=== PATIENT | female | born 1950 | race Caucasian/White ===

== ENCOUNTER 2019-05-03 11:59 | Inpatient (IN) ==
[2019-05-03] MEDS ORDERED: 0.9 % SODIUM CHLORIDE 1,000 ML IV SCH (12:15)
--- NOTE | 2019-05-03 13:00 | Emergency Department Note ---
Recheck HPI - General Chief Complaint: Recheck/Abnormal Lab/Rx Stated Complaint: PCP requested patient come to be seen Time Seen by Provider: 05/03/19 12:10 Source: patient, other Mode of arrival: wheelchair Limitations: no limitations, physical limitation - History of Present Illness HPI Narrative: 69-year-old female presents she was sent over for renal failure. She is been seen her primary care provider and she has not felt well for the last few mo nths. Is somewhat poor historian and hard to follow but from what she is seen she has not felt well for couple months but is been worse over the last couple of weeks. Sounds like she was recently treated for a urinary tract infection and was has been on antibiotics for the last week or so and then she became much worse last week after being on the antibiotics. And right upper quadrant pain and has lost about 12 pounds in the last 2 weeks. The right upper quadrant pain is new for the last week but the generally feeling poor and 12 pound weight loss had been going on previously. No fever or chills. No nausea, vomiting, or diarrhea. She does not have an appetite. No dysuria or frequency. We are still awaiting an ultrasound report at this time. [facility] reports the lab results came back today with a high potassium and elevated BUN and creatinine. We will repeat those labs here now as they are not readily available. - Related Data Home Medications Medication Instructions Recorded Confirmed aspirin 325 mg tablet 325 mg PO QDAY 10/16/15 11/05/15 atorvastatin 40 mg tablet 40 mg PO QDAY 10/16/15 11/05/15 budesonide-formoterol HFA 160 1 inh INHALATION BID g 10/16/15 11/05/15 mcg-4.5 mcg/actuation aerosol inhaler carvedilol 12.5 mg tablet 12.5 mg PO BID 10/16/15 11/05/15 cholecalciferol (vitamin D3) 50,000 unit PO .COMPLEX 10/16/15 11/05/15 50,000 unit tablet cyanocobalamin (vit B-12) 1,000 See Dose Instructions IM QMONTH 10/16/15 11/05/15 mcg/mL injection solution ferrous sulfate 325 mg (65 mg mg PO 10/16/15 11/05/15 iron) tablet folic acid 1 mg tablet 1 mg PO QDAY 10/16/15 11/05/15 furosemide 20 mg tablet 20 mg PO QDAY 10/16/15 11/05/15 hydrocodone 10 mg-acetaminophen 1 tab PO Q4H PRN 10/16/15 11/05/15 325 mg tablet hydroxychloroquine 200 mg tablet 200 mg PO QDAY tab 10/16/15 11/05/15 levothyroxine 88 mcg tablet 125 mcg PO QDAY 10/16/15 11/05/15 methotrexate sodium 2.5 mg tablet See Dose Instructions PO QWEEK tab 10/16/15 11/05/15 nitroglycerin 0.4 mg sublingual 0.4 mg SUBLINGUAL Q5MIN PRN 10/16/15 11/05/15 tablet oxybutynin chloride ER 10 mg 10 mg PO QHS tab 10/16/15 11/05/15 tablet,extended release 24 hr polyethylene glycol 3350 PO 10/16/15 11/05/15 potassium chloride ER 10 mEq 10 meq PO QDAY PRN tab 10/16/15 11/05/15 tablet,extended release prochlorperazine maleate 10 mg 10 mg PO Q6H PRN 10/16/15 11/05/15 tablet ranitidine 150 mg tablet 150 mg PO BID tab 10/16/15 11/05/15 tiotropium bromide 18 mcg capsule 18 mcg INHALATION QDAY 10/16/15 11/05/15 with inhalation device One Daily For Women Tablet 11/07/15 Apixaban [Eliquis] 1 tab PO BID 05/03/19 05/03/19 Allergies Allergy/AdvReac Type Severity Reaction Status Date / Time tetracycline Allergy Mild Hives Verified 05/03/19 15:51 baclofen Allergy Unknown Unknown Verified 05/03/19 15:51 Review of Systems All systems ED: reviewed and negative except as stated. Past Medical History - Past Medical History [facility] Narrative: Medical History Gall stones (Acute) Kidney stones (Acute) History of mammogram (Acute) History of bone density study (Acute) Compression fracture (Acute) Herpes zoster (Acute) Vitamin B12 deficiency (Acute) Anemia (Acute) Gastritis (Acute) H/O: hysterectomy (Acute) Hyperlipemia (Acute) Heart attack (Acute) CAD (coronary artery disease) (Acute) Lupus (Acute) Hypertension (Acute) Medical History Gall stones (Acute) Kidney stones (Acute) History of mammogram (Acute) History of bone density study (Acute) Compression fracture (Acute) Herpes zoster (Acute) Vitamin B12 deficiency (Acute) Anemia (Acute) Gastritis (Acute) H/O: hysterectomy (Acute) Hyperlipemia (Acute) Heart attack (Acute) CAD (coronary artery disease) (Acute) Lupus (Acute) Hypertension (Acute) tetracycline Allergy (Unknown, Verified 05/03/19 12:04) Hives baclofen Allergy (Verified 05/03/19 12:04) 05/03/19 12:11 ED Peripheral IV NOW 05/03/19 12:15 0.9 % Sodium Chloride [Sodium Chloride 0.9%] 1,000 ml IV 150 mls/hr 05/03/19 12:42 CHEM 8 - POC 3 Profile Stat Complete Blood Count Stat Comprehensive Metabolic Panel Stat Thyroid Stimulating Hormone Stat Temp Pulse Resp BP Pulse Ox 97.1 F 66 18 116/66 99 05/03/19 12:00 05/03/19 12:00 05/03/19 12:00 05/03/19 12:00 05/03/19 12:00 Past Surgical History History of colonoscopy (Acute) Stented coronary artery (Acute) History of tonsillectomy and adenoidectomy (Acute) History of breast biopsy (Acute) - Social History smoking status: Never smoker Physical Exam Limitations: no limitations, physical limitation Course Course Narrative: @[address] Edward. He will consult. Would like us to give the patient 3 A of bicarb and a liter of normal saline at [address] a Lubin. @1500 I did speak with hospitalist Dr. mike regarding pt. He would like abd/pelv CT for cont RUQ abd pain, no abnormality on US. At 1700 hospitalist agrees to accept this patient and Dr. Edward with nephrology will consult Vital Signs Temperature 97.1 F 05/03/19 12:00 Pulse Rate 66 05/03/19 12:00 Respiratory Rate 18 05/03/19 12:00 Blood Pressure 116/66 05/03/19 12:00 Pulse Oximetry (%) 99 05/03/19 12:00 Temperature 97.1 F 05/03/19 12:00 Pulse Rate 57 L 05/03/19 17:01 Respiratory Rate 18 05/03/19 12:00 Blood Pressure 95/48 05/03/19 17:01 Pulse Oximetry (%) 97 05/03/19 17:01 Recheck/Abnormal Lab/Rx - Lab Data Lab results reviewed: Yes I reviewed the patient's lab results. Result diagrams: 05/03/19 12:42 05/03/19 12:42 Lab Results 05/03/19 05/03/19 05/03/19 Range/Units 12:42 12:42 13:08 WBC 4.1 L (4.5-11.0) K/mcL RBC 3.77 L (4.00-5.20) M/mcL Hgb 11.6 L (12.0-15.0) g/dL Hct 35.5 L (36.0-48.0) % POC Hct TNP 38.0 MCV 94.0 (80.0-100.0) fL MCH 30.7 (26.0-34.0) pg MCHC 32.6 (31.0-36.0) g/dL RDW 15.7 H (11.5-14.5) % Plt Count 128 L (140-440) K/mcL MPV 8.9 (7.4-10.4) fL Gran % 59.9 (38.0-78.0) % Lymph % (Auto) 32.0 (15.5-49.0) % [place]on % (Auto) 5.1 (1.0-12.0) % Eos % (Auto) 2.5 (0.0-7.0) % Baso % (Auto) 0.5 (0.0-2.0) % Gran # 2.5 (1.8-8.0) K/mcL Lymph # (Auto) 1.3 L (1.5-4.8) K/mcL [place]on # (Auto) 0.2 (0.1-0.9) K/mcL Eos # (Auto) 0.1 (0.0-0.7) K/mcL Baso # (Auto) 0 (0.0-0.3) K/mcL POC Sodium TNP 130 L Sodium 130 L (133-145) mmol/L POC Potassium TNP 7.8 H* Potassium 7.8 H* (3.3-5.1) mmol/L POC Chloride TNP 106 Chloride 100 (96-108) mmol/L Carbon Dioxide 15 L (22-30) mmol/L POC Total CO2 TNP 19 L Anion Gap 15.0 (8-16) POC BUN TNP 49 H BUN 49 H (8-23) mg/dl Creatinine 2.5 H (0.6-1.1) mg/dl POC Creatinine TNP 2.6 H GFR Calculation 19 Glucose 92 (70-105) mg/dL POC Glucose TNP 88 Calcium 10.5 H (8.6-10.4) mg/dl POC WB Ioniz Calcium TNP 1.41 H Total Bilirubin 0.3 (0.0-1.0) mg/dL AST 22 (0-37) U/l ALT 26 (0-40) U/l Alkaline Phosphatase 144 H (39-117) U/L Total Protein 7.3 (5.9-8.4) gm/dL Albumin 4.3 (3.2-5.2) gm/dL Globulin 3.0 (2.2-3.7) gm/dL Albumin/Globulin Ratio 1.4 (1.0-2.3) TSH 1.81 (0.27-5.01) uIU/ml - Radiology Data Radiology results reviewed: Yes I reviewed the patient's radiology results. Disposition Pt seen by [facility] only: Yes Clinical Impression: Hyperkalemia, Acute renal failure Disposition: Xfer As Inpt ([facility]) Condition: Fair Referrals: Denise Cid ARNP [Primary Care Provider] - Time of Disposition: 17:00
[2019-05-03 13:21] LABS: POC Blood Urea Nitrogen 49 mg/dl (8-23); POC CO2 19 mmol/L (22-30); POC Calcium, Ionized 1.41 mmol/L (1.16-1.32); POC Chloride 106 mmol/L (96-108); POC Creatinine 2.6 mg/dl (0.6-1.1); POC Glucose, Random 88 mg/dL (70-105); POC Potassium 7.8 mmol/L (3.3-5.1); POC Sodium 130 mmol/L (133-145)
[2019-05-03 13:29] LABS: Basophils # (Auto) 0 K/mcL (0.0-0.3); Basophils % (Auto) 0.5 % (0.0-2.0); Eosinophils # (Auto) 0.1 K/mcL (0.0-0.7); Eosinophils % (Auto) 2.5 % (0.0-7.0); Granulocytes % (Auto) 59.9 % (38.0-78.0); Hematocrit 35.5 % (36.0-48.0); Hemoglobin 11.6 g/dL (12.0-15.0); Lymphocytes # (Auto) 1.3 K/mcL (1.5-4.8); Mean Corpuscular HGB Conc 32.6 g/dL (31.0-36.0); Mean Platelet Volume 8.9 fL (7.4-10.4); Monocytes # (Auto) 0.2 K/mcL (0.1-0.9); Monocytes % (Auto) 5.1 % (1.0-12.0); Platelet Count 128 K/mcL (140-440); RBC 3.77 M/mcL (4.00-5.20); Red Cell Distribution Width 15.7 % (11.5-14.5); WBC 4.1 K/mcL (4.5-11.0)
[2019-05-03 14:26] LABS: ALT/SGPT 26 U/l (0-40); AST/SGOT 22 U/l (0-37); Albumin 4.3 gm/dL (3.2-5.2); Albumin/Globulin Ratio 1.4 (1.0-2.3); Alkaline Phosphatase 144 U/L (39-117); Bilirubin,Total 0.3 mg/dL (0.0-1.0); Blood Urea Nitrogen 49 mg/dl (8-23); Calcium 10.5 mg/dl (8.6-10.4); Carbon Dioxide 15 mmol/L (22-30); Chloride 100 mmol/L (96-108); Glomerular Filtration Rate 19; Glucose 92 mg/dL (70-105); Thyroid Stimulating Hormone 1.81 uIU/ml (0.27-5.01)
[2019-05-03] MEDS ORDERED: SODIUM BICARBONATE IV ONE (14:35)
[2019-05-03] MEDS ORDERED: SODIUM CHLORIDE 0.9% IV ONE (14:35)
[2019-05-03] MEDS ORDERED: INSULIN REGULAR, HUMAN 1 UNIT/0.01 ML UNIT IV ONE (14:37)
[2019-05-03] MEDS ORDERED: DEXTROSE 50% 50 ML SYRINGE IV ONE (14:38)
--- NOTE | 2019-05-03 15:36 | Internal Med History&Physical ---
Medical - H&P: [facility] Patient information: Note initiated : 05/03/19 at 3:32 pm Service Date, if different from initiated Date: [] Patient: Margarita Tovar a 69 y/o F admitted on for PCP Requested Patient Come To Be Seen. Chief Complaint: [] History of present illness: Ms. Tovar is a 69 year old F Who has felt very tired and sleepy for the past week. About 5 days ago she developed a right upper abdominal pain which does she describes as a bruising type of pain not sharp or achy or dull. Nonradiating. She also recently diagnosed with urinary tract infection and was prescribed Bactrim I believe, about a week ago. She was undergoing a abdominal ultrasound today ordered by her primary to work- up abdominal pain when she was called by her primary and and told to go to the ER because of her laboratory work which was done outpatient was abnormal which was her elevated BUN/creatinine and potassium. Patient does not feel any other complaints other than the abdominal pain and the generalized malaise. Denies flank pain, denies urinary symptoms. Has a mild dry cough. He is found to have BUN 49 creatinine of 2.5 and typically she has essentially normal creatinine. Her potassium was 7.8. Dr. Stephenson was contacted ordered to bicarb as well as insulin glucose. Verbal report from ultrasound was unremarkable. Patient is undergoing CT abdomen. Review of Systems: Pertinent positives as above. Denies headache/fever/chills/nausea/vomiting/chest pain/cough/dyspnea/diarrhea. Remaining 10 point review of system reviewed negative Medical - H&P: PM Medical history: Medical History Gall stones (Acute) Kidney stones (Acute) History of mammogram (Acute) History of bone density study (Acute) Compression fracture (Acute) Herpes zoster (Acute) Vitamin B12 deficiency (Acute) Anemia (Acute) Gastritis (Acute) H/O: hysterectomy (Acute) Hyperlipemia (Acute) Heart attack (Acute) CAD (coronary artery disease) (Acute) Lupus (Acute) Hypertension (Acute) Past Surgical History History of colonoscopy (Acute) Stented coronary artery (Acute) History of tonsillectomy and adenoidectomy (Acute) History of breast biopsy (Acute) Family History Mother Hypertension Father Hypertension Social History Quit smoking 10 years ago denies alcohol use ablates with a cane lives with brother Medical - H&P: Meds Home Medications Medication Instructions Recorded Confirmed Type atorvastatin 40 mg tablet 40 mg PO QHS 10/16/15 05/03/19 History budesonide-formoterol HFA 160 1 inh INHALATION BID g 10/16/15 05/03/19 History mcg-4.5 mcg/actuation aerosol inhaler carvedilol 12.5 mg tablet 12.5 mg PO BID 10/16/15 05/03/19 History cholecalciferol (vitamin D3) 50,000 unit PO DAILY 10/16/15 05/03/19 History 50,000 unit tablet cyanocobalamin (vit B-12) 1,000 See Dose Instructions IM QMONTH 10/16/15 05/03/19 History mcg/mL injection solution ferrous sulfate 325 mg (65 mg 325 mg PO QNOON 10/16/15 05/03/19 History iron) tablet folic acid 1 mg tablet 1 mg PO QDAY 10/16/15 05/03/19 History furosemide 20 mg tablet 20 mg PO QDAY PRN 10/16/15 05/03/19 History hydrocodone 10 mg-acetaminophen 1 tab PO Q4H PRN 10/16/15 05/03/19 History 325 mg tablet hydroxychloroquine 200 mg tablet 200 mg PO QDAY tab 10/16/15 05/03/19 History levothyroxine 88 mcg tablet 125 mcg PO QDAY 10/16/15 05/03/19 History methotrexate sodium 2.5 mg tablet See Dose Instructions PO VAZQUEZ tab 10/16/15 05/03/19 History nitroglycerin 0.4 mg sublingual 0.4 mg SUBLINGUAL Q5MIN PRN 10/16/15 05/03/19 History tablet oxybutynin chloride ER 10 mg 10 mg PO QHS tab 10/16/15 05/03/19 History tablet,extended release 24 hr polyethylene glycol 3350 17 gm PO DAILY PRN 10/16/15 05/03/19 History potassium chloride ER 10 mEq 10 meq PO TID tab 10/16/15 05/03/19 History tablet,extended release prochlorperazine maleate 10 mg 10 mg PO Q6H PRN 10/16/15 05/03/19 History tablet ranitidine 150 mg tablet 150 mg PO BID tab 10/16/15 05/03/19 History tiotropium bromide 18 mcg capsule 18 mcg INHALATION Q48 10/16/15 05/03/19 History with inhalation device Apixaban [Eliquis] 1 tab PO BID 05/03/19 05/03/19 History Aspirin [Sabine Chewable Aspirin] 81 mg PO DAILY 05/03/19 05/03/19 History Multivit-Min/Iron/Folic/Lutein 1 each PO DAILY 05/03/19 05/03/19 History [Multivitamin Women 50 Plus Tab] Allergies Allergy/AdvReac Type Severity Reaction Status Date / Time baclofen Allergy Severe Other Verified 05/03/19 18:40 tetracycline Allergy Mild Hives Verified 05/03/19 15:51 Medical - H&P: Exam - Constitutional Vitals: Temp Pulse Resp BP Pulse Ox 97.1 F 66 18 116/66 99 05/03/19 12:00 05/03/19 12:00 05/03/19 12:00 05/03/19 12:00 05/03/19 12:00 Exam: General: Alert, Awake, No acute Distress, frail-appearing Eyes/N/T: EOMI, PEERL, DMM Head/Neck: neck supple, normocephalic atraumatic CV: RRR, 1/6 SM, normal s1/s2 Pulm: Clear b/l, no wheezing/rhonchi/rales Abd: soft, mild tenderness to palpation right upper quadrant, +BS x4 Ext: no clubbing/cyanosis/edema Neuro: Alert, no focal deficits, moves all extremities, CN 2-12 grossly intact, symmetrical strength b/l upper/lower, sensations intact b/l upper/lower Skin: warm/dry Medical - H&P: Reslt - Labs CBC & Chem 7: 05/03/19 12:42 05/03/19 17:18 Labs: Short CBC 05/03/19 Range/Units 12:42 WBC 4.1 L (4.5-11.0) K/mcL Hgb 11.6 L (12.0-15.0) g/dL Hct 35.5 L (36.0-48.0) % Plt Count 128 L (140-440) K/mcL BMP 05/03/19 12:42 Sodium 130 L Potassium 7.8 H* Chloride 100 Carbon Dioxide 15 L BUN 49 H Creatinine 2.5 H Glucose 92 Calcium 10.5 H Liver Function 05/03/19 Range/Units 12:42 Total Bilirubin 0.3 (0.0-1.0) mg/dL AST 22 (0-37) U/l ALT 26 (0-40) U/l Alkaline Phosphatase 144 H (39-117) U/L Albumin 4.3 (3.2-5.2) gm/dL - Impressions Verbal report on ultrasound unremarkable. 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 Estevez -Anemia, thrombocytopenia, leukopenia *AFib: On beta-adelfo and Eliquis *CAD's w/stent: *h/o TIA: *COPD (no home oxygen): *Hypothyroidism: *RA: On hydroxychloroquine and methotrexate *GERD: *Chronic low back pain: * P: -insulin/glucose, bicarb gtt -f/u K -Nephro following -mcguire placed -ACTH Stim test in AM -Dexamethasone if need prior to testing. -cont home ASA/Statin -hold for low-normal BB and concern for adrenal insuff, toprol may be more ideal than coreg for decreased effect on BP. -hold diuretics -pt/ot -ppx: eliquis/home H2 full code
[2019-05-03] MEDS ORDERED: HYDROcodone/APAP 5/325MG TABLET PO PRN ×2 (15:45→17:51)
[2019-05-03] MEDS ORDERED: ACETAMINOPHEN 325 MG TABLET PO PRN ×2 (15:45→17:51)
[2019-05-03] MEDS ORDERED: ALBUTEROL SULFATE 2.5 MG/3 ML NEBULIZER NEB PRN ×2 (15:45→17:51)
--- NOTE | 2019-05-03 16:01 | Cat Scan Report ---
CLINICAL INFORMATION: Right upper quadrant pain COMPARISON: None. TECHNIQUE: IV contrast was withheld due to elevated BUN/creatinine 0.625 mm helical slices were obtained from the mid heart through the subtrochanteric regions. Following reconstruction, 2.5 mm sagittal, coronal and axial reformatted images were processed and reviewed at bone and soft tissue windows.The exam was performed using radiation dose optimization techniques including, but not limited to, automated exposure control, adjustment of the mA and/or kV according to patient size and use of iterative reconstruction technique. FINDINGS: Lung bases show moderate scattered scarring and atelectasis with chronic bronchitis. No effusion. The heart is moderately enlarged with extremely heavy calcific plaque in the coronary arteries. Central pulmonary arteries appear mildly enlarged suggesting pulmonary hypertension. Pulmonary arteries are incompletely imaged. Small hiatal hernia noted Images through the abdomen show the noncontrasted liver to be unremarkable. The gallbladder is surgically absent. The common bile duct is moderately dilated with 12 mm with abrupt tapering near the ampullary region. 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 The noncontrasted pancreas, otherwise the normal. Both kidneys show mild atrophy: the right is 9 cm in length and the left is also 9 cm in length. A few small nonobstructing stones in calyces of both kidneys. There is a 7 mm calcification in the posterior left kidney which may represent a nonobstructing stone or calcified cyst. The aorta is normal in diameter demonstrates extremely heavy calcific lack. Pelvic images show the urinary bladder to be normal. Hysterectomy and oophorectomy changes noted. The stomach, small large bowel grossly normal. Bone windows show mild T10 T11 T12 compression fractures with minimal L1 compression fracture treated with kyphoplasty mild L2 compression fracture. IMPRESSION: 1. 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 Please correlate with obstructive LFT pattern. 2. Mild bilateral renal atrophy. Scattered small nonobstructing stones in the calyces of both kidneys. 3. Small hiatal hernia 4. Mild cardiomegaly with heavy calcific and soft plaque in the coronary arteries 5. Mild compression fractures lower thoracic and lumbar spine due to osteoporosis Interpreted and Authenticated by: Rashi Ruffin 05/03/19
[2019-05-03] MEDS ORDERED: SODIUM BICARBONATE VIAL 150 MEQ in DEXTROSE 5% IN WATER 850 ML IV SCH (17:51)
[2019-05-03] MEDS ORDERED: SODIUM BICARBONATE VIAL 150 MEQ in DEXTROSE 5% IN WATER 850 ML IV STA (18:07)
[2019-05-03 18:32] LABS: Blood Urea Nitrogen 42 mg/dl (8-23); Calcium 9.7 mg/dl (8.6-10.4); Carbon Dioxide 17 mmol/L (22-30); Chloride 108 mmol/L (96-108); Glomerular Filtration Rate 28; Glucose 37 mg/dL (70-105)
[2019-05-03] MEDS ORDERED: APIXABAN 2.5 MG TABLET PO SCH (21:00)
[2019-05-03] MEDS ORDERED: DOCUSATE SODIUM 100 MG CAPSULE PO SCH (21:00)
[2019-05-03] MEDS ORDERED: FAMOTIDINE 20 MG TABLET PO SCH ×2 (21:00)
[2019-05-03] MEDS ORDERED: POLYETHYLENE GLYCOL 3350 17 GM PACKET PO PRN (21:31)
[2019-05-03] MEDS ORDERED: 0.9 % SODIUM CHLORIDE 10 ML SYRINGE IV SCH (22:00)
[2019-05-03 22:05] LABS: Appearance,Urine CLEAR; Bacteria,Urine 0 /hpf (0); Bilirubin,Urine NEG (NEG); Color,Urine YELLOW; Culture Indicated,Urine NO; Glucose,Urine (UA) NEGATIVE (NEG); Ketones,Urine NEG (NEG); Leukocyte Esterase,Urine NEG /uL (NEG); Mucus,Urine FEW /hpf (0); Nitrate,Urine NEG (NEG); Protein,Urine NEG (NEG); Specific Gravity,Urine 1.013 (1.000-1.035); Urine Amorphous Crystals FEW /hpf (0); Urine Blood >=1.0 mg/dL (<0.03); Urine Hyaline Cast 4 /lpf (0-2); Urine RBC 6 /hpf (0-1); Urine Squamous Epithelial Cell 0 /hpf (0-4); Urine WBC 2 /hpf (0-4); Urobilinogen,Urine NEG (NEG)
[2019-05-03] MEDS ORDERED: NITROGLYCERIN 0.4 MG TAB.SUBL SL PRN (22:07)
[2019-05-03] MEDS ORDERED: PROCHLORPERAZINE 10 MG TABLET PO PRN (22:15)
[2019-05-03] MEDS: APIXABAN 2.5 MG TABLET PO SCH (22:45)
[2019-05-03] MEDS: DOCUSATE SODIUM 100 MG CAPSULE PO SCH (22:45)
[2019-05-03] MEDS: HYDROCORTISONE SOD SUCC 100 MG VIAL IV SCH (22:47)
[2019-05-03] MEDS: 0.9 % SODIUM CHLORIDE 10 ML SYRINGE IV SCH (22:51)
[2019-05-04] MEDS: HYDROcodone/APAP 10/325MG TABLET PO PRN ×2 (05:59→15:54)
[2019-05-04 06:02] LABS: Albumin 3.1 gm/dL (3.2-5.2); Calcium 8.8 mg/dl (8.6-10.4); Phosphorous 3.9 mg/dL (2.7-4.5)
[2019-05-04] MEDS: 0.9 % SODIUM CHLORIDE 10 ML SYRINGE IV SCH ×4 (06:06→20:52)
[2019-05-04] MEDS: HYDROCORTISONE SOD SUCC 100 MG VIAL IV SCH ×2 (06:06→15:16)
[2019-05-04] MEDS ORDERED: COSYNTROPIN 0.25 MG VIAL IV ONE (07:00)
[2019-05-04] MEDS ORDERED: LABETALOL 5 MG/ML ML IV PRN (07:19)
--- NOTE | 2019-05-04 07:20 | Internal Med Progress Note ---
Medical - PN: Subj Patient information: Note initiated : 05/04/19 at 7:17 am Service Date, if different from initiated Date: [] Patient: Margarita Tovar a 69 y/o F admitted on 05/03/19 for PCP Requested Patient Come To Be Seen. Chief Complaint: [] Interval history: Ms. Tovar is a 69 year old F Who has felt very tired and sleepy for the past week. About 5 days ago she developed a right upper abdominal pain which does she describes as a bruising type of pain not sharp or achy or dull. Nonradiating. She also recently diagnosed with urinary tract infection and was prescribed Bactrim I believe, about a week ago. She was undergoing a abdominal ultrasound today ordered by her primary to work- up abdominal pain when she was called by her primary and and told to go to the ER because of her laboratory work which was done outpatient was abnormal which was her elevated BUN/creatinine and potassium. Patient does not feel any other complaints other than the abdominal pain and the generalized malaise. Denies flank pain, denies urinary symptoms. Has a mild dry cough. He is found to have BUN 49 creatinine of 2.5 and typically she has essentially normal creatinine. Her potassium was 7.8. Dr. Stephenson was contacted ordered to bicarb as well as insulin glucose. Verbal report from ultrasound was unremarkable. Patient is undergoing CT abdomen. 05/04 Feeling good. Slept well. No new complaints. Awaiting endocrine labs and following up renal function and potassium Review of Systems: denies headache/fever/chills/nausea/vomiting/chest or abdominal pain/cough/dyspnea/diarrhea. Otherwise see above. - Constitutional Vitals: Vital Signs Temp Pulse Resp BP Pulse Ox 97.5 F 63 12 140/68 100 05/04/19 03:26 05/04/19 03:26 05/04/19 03:26 05/04/19 03:26 05/04/19 03:26 Period Temp Pulse Resp BP Sys/Gutierrez Pulse Ox Last 24 Hr 96.9 F-97.5 F 44-69 12-18 95-140/48-68 95-100 Intake and Output 05/03/19 05/04/19 05/04/19 21:59 05:59 13:59 Intake Total 1201 225 Balance 1201 225 Weight 48.081 kg Intake & Output: Intake & Output 05/03/19 05/04/19 05/04/19 21:59 05:59 13:59 Intake Total 1201 225 Balance 1201 225 Weight 48.081 kg Intake: IV 1201 Sodium Chloride 0.9% 1,000 ml @ 1000 150 mls/hr IV .Q6H40M [facility] Rx#: [id number] Sodium Bicarbonate Vial 150 Meq 201 In Sodium Chloride 0.9% 850 ml @ 0.18 MEQ/KG/HR 57.7 mls/hr IV ONCE ONE Rx#:[id number] Oral 225 Other: Meal Dinner Jello Percent of Meal Consumed 50% 100% Feeding Ability Independent Independent Urine Appearance Uretheral (Mcguire) Clear Urine Color Uretheral (Mcguire) Pale Exam: General: Alert, Awake, No acute Distress, frail-appearing Eyes/N/T: EOMI, Head/Neck: neck supple, CV: RRR, 1/6 SM, normal s1/s2 Pulm: Clear b/l, no wheezing/rhonchi/rales Abd: soft, nontender, +BS x4 Ext: no clubbing/cyanosis/edema Neuro: Alert, no focal deficits, moves all extremities, Skin: warm/dry - Head Additional comments: General: Alert, Awake, No acute Distress, frail-appearing Eyes/N/T: EOMI, Head/Neck: neck supple, CV: RRR, 1/6 SM, Pulm: Clear b/l, no wheezing/rhonchi/rales Abd: soft, mild tenderness to palpation right upper quadrant, +BS x4 Ext: no clubbing/cyanosis/edema Neuro: Alert, no focal deficits, moves all extremities, Skin: warm/dry Medical - PN: Obj Da - Labs CBC & Chem 7: 05/04/19 06:59 05/04/19 06:59 Labs: Abnormal Lab Results 05/03/19 05/03/19 05/03/19 22:06 21:24 17:18 WBC RBC Hgb Hct RDW Plt Count Lymph # (Auto) POC Sodium Sodium POC Potassium Potassium 6.0 H* 5.2 H Carbon Dioxide 21 L 17 L POC Total CO2 POC BUN BUN 41 H 42 H Creatinine 1.5 H 1.8 H POC Creatinine Glucose 160 H 37 L* Calcium POC WB Ioniz Calcium Alkaline Phosphatase Albumin 3.1 L Urine Occult Blood >=1.0 A Urine RBC 6 H Amorphous Crystals Few A Hyaline Casts 4 H 05/03/19 05/03/19 05/03/19 13:08 12:42 12:42 WBC 4.1 L RBC 3.77 L Hgb 11.6 L Hct 35.5 L RDW 15.7 H Plt Count 128 L Lymph # (Auto) 1.3 L POC Sodium 130 L Sodium 130 L POC Potassium 7.8 H* Potassium 7.8 H* Carbon Dioxide 15 L POC Total CO2 19 L POC BUN 49 H BUN 49 H Creatinine 2.5 H POC Creatinine 2.6 H Glucose Calcium 10.5 H POC WB Ioniz Calcium 1.41 H Alkaline Phosphatase 144 H Albumin Urine Occult Blood Urine RBC Amorphous Crystals Hyaline Casts Meds: Medications Acetaminophen (Tylenol) 650 mg PO Q6HP PRN PRN Reason: PAIN/FEVER > 101 Hydrocodone Bitart/Acetaminophen ([place] 10/325mg) 1 tab PO Q4HP PRN PRN Reason: Pain Last Admin: 05/04/19 05:59 Dose: 1 tab Documented by: Albuterol Sulfate (Ventolin) 2.5 mg NEB Q2HP PRN PRN Reason: Shortness Of Breath Apixaban (Eliquis) 2.5 mg PO BID [facility] Last Admin: 05/03/19 22:45 Dose: 2.5 mg Documented by: Aspirin (Aspirin) 81 mg PO DAILY [facility] Atorvastatin Calcium (Lipitor) 40 mg PO QHS [facility] Docusate Sodium (Colace) 100 mg PO BID [facility] Last Admin: 05/03/19 22:45 Dose: 100 mg Documented by: Famotidine (Pepcid) 20 mg PO BID [facility] Folic Acid (Folic Acid) 1 mg PO QDAY [facility] Hydrocortisone Sodium Succinate (Solu-Cortef) 100 mg IV Q8 [facility] Stop: 05/05/19 14:01 Last Admin: 05/04/19 06:06 Dose: 100 mg Documented by: Hydroxychloroquine Sulfate (Plaquenil) 200 mg PO QDAY [facility] Levothyroxine Sodium (Synthroid) 125 mcg PO QAMAC [facility] Nitroglycerin (Nitrostat) 0.4 mg SL Q5M PRN PRN Reason: Chest Pain Oxybutynin Chloride (Ditropan Xl) 10 mg PO QHS [facility] Symbicort 160-4.5 (Inh) 1 dose INH BID [facility] Polyethylene Glycol (Miralax) 17 gm PO DAILYP PRN PRN Reason: Constipation Prochlorperazine (Compazine) 10 mg PO Q6HP PRN PRN Reason: Nausea Sodium Chloride (Saline Flush) 10 ml IV Q8 [facility] Last Admin: 05/04/19 06:06 Dose: 10 ml Documented by: Tiotropium [place] (Spiriva) 18 mcg INH Q48 [facility] Medical - PN: A/P - Time Spent With Patient Total time spent is greater than 50% in coordination of care (as documented) at patient's floor/unit and/or counseling patient: - Narrative A/P Narrative: A: *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 Estevez -Anemia, thrombocytopenia, leukopenia *AFib: On BB/Eliquis *CAD's w/stent: *h/o TIA: *COPD (no home oxygen): *Hypothyroidism: *?SLE: On hydroxychloroquine and methotrexate *GERD: *Chronic low back pain: * P: -insulin/glucose, bicarb gtt -f/u K -Nephro following -mcguire placed -ACTH Stim test -cont home ASA/Statin -Decreased coreg for low-normal BP and concern for adrenal insuff, toprol may be more ideal than coreg for decreased effect on BP. -hold diuretics -pt/ot -ppx: eliquis/home H2 full code Medical - PN: Qual - VTE Deep Vein Thrombosis/Pulmonary Embolism Present on Admission: No
[2019-05-04] MEDS: CARVEDILOL 3.125 MG TABLET PO SCH ×2 (08:28→17:51)
[2019-05-04] MEDS: FOLIC ACID 1 MG TABLET PO SCH (08:28)
[2019-05-04] MEDS: DOCUSATE SODIUM 100 MG CAPSULE PO SCH ×2 (08:28→20:51)
[2019-05-04] MEDS: ASPIRIN 81 MG TAB.CHEW PO SCH (08:28)
[2019-05-04] MEDS: APIXABAN 2.5 MG TABLET PO SCH ×2 (08:29→20:51)
[2019-05-04] MEDS: HYDROXYCHLOROQUINE 200 MG TABLET PO SCH (08:29)
[2019-05-04] MEDS: SYMBICORT INH SCH ×2 (08:29→20:52)
[2019-05-04] MEDS: FAMOTIDINE 20 MG TABLET PO SCH ×2 (08:29→20:51)
[2019-05-04 08:33] LABS: ALT/SGPT 20 U/l (0-40); AST/SGOT 20 U/l (0-37); Albumin 3.6 gm/dL (3.2-5.2); Albumin/Globulin Ratio 1.4 (1.0-2.3); Alkaline Phosphatase 121 U/L (39-117); Bilirubin,Direct < 0.2 mg/dL (0.0-0.3); Bilirubin,Total 0.4 mg/dL (0.0-1.0); Blood Urea Nitrogen 31 mg/dl (8-23); Calcium 9.3 mg/dl (8.6-10.4); Carbon Dioxide 25 mmol/L (22-30); Chloride 97 mmol/L (96-108); Globulin 2.6 gm/dL (2.2-3.7); Glomerular Filtration Rate 46; Glucose 155 mg/dL (70-105); Lactate Dehydrogenase 194 U/L (94-250); Phosphorous 2.5 mg/dL (2.7-4.5); Triglycerides 55 mg/dl (<150); Uric Acid 7.4 mg/dL (2.5-8.0)
[2019-05-04 08:43] LABS: Basophils # (Auto) 0 K/mcL (0.0-0.3); Basophils % (Auto) 0.3 % (0.0-2.0); Eosinophils # (Auto) 0 K/mcL (0.0-0.7); Eosinophils % (Auto) 0.2 % (0.0-7.0); Hematocrit 31.4 % (36.0-48.0); Hemoglobin 10.4 g/dL (12.0-15.0); Lymphocytes # (Auto) 0.5 K/mcL (1.5-4.8); Lymphocytes % (Auto) 15.4 % (15.5-49.0); Monocytes # (Auto) 0 K/mcL (0.1-0.9); Monocytes % (Auto) 1.1 % (1.0-12.0); Platelet Count 106 K/mcL (140-440); RBC 3.34 M/mcL (4.00-5.20); Red Cell Distribution Width 15.4 % (11.5-14.5); WBC 3.3 K/mcL (4.5-11.0)
[2019-05-04] MEDS ORDERED: RANITIDINE 150 MG PO SCH (09:00)
--- NOTE | 2019-05-04 09:07 | Nephrology Progress Note ---
Subjective Patient information: Note initiated : 05/04/19 at 9:04 am Service Date, if different from initiated Date: [] Patient: Margarita Tovar 69 y/o F admitted on 05/03/19 for PCP Requested Patient Come To Be Seen. Chief Complaint: [] Principal diagnosis: Hyperkalemia Interval history: Feels better after IVF. Wants to go home Pertinent ROS: Weakness bersists, hypotension and abd pain have abated Additional PMFSH (Level 3 Only): Need labs from primary hog worker Objective - Vital Signs Vital signs: Vital Signs Temp Pulse Pulse Resp BP BP Pulse Ox 05/04/19 03:26 97.5 F 63 12 140/68 100 05/03/19 23:43 97.4 F 44 L 12 114/55 99 05/03/19 19:39 96.9 F L 56 L 12 106/60 100 05/03/19 17:43 97.1 F 57 L 18 95/48 97 05/03/19 17:40 97.0 F 69 18 98/49 97 05/03/19 17:01 57 L 95/48 97 05/03/19 16:41 65 113/55 97 05/03/19 16:21 66 105/57 97 05/03/19 16:01 67 111/55 95 05/03/19 15:59 64 109/53 96 05/03/19 12:00 97.1 F 66 18 116/66 99 Intake and Output 05/03/19 05/04/19 05/04/19 21:59 05:59 13:59 Intake Total 1201 225 Balance 1201 225 Intake: IV 1201 Sodium Chloride 0.9% 1,000 ml @ 1000 150 mls/hr IV .Q6H40M [facility] Rx#: [id number] Sodium Bicarbonate Vial 150 Meq 201 In Sodium Chloride 0.9% 850 ml @ 0.18 MEQ/KG/HR 57.7 mls/hr IV ONCE ONE Rx#:[id number] Oral 225 Other: Meal Dinner Jello Percent of Meal Consumed 50% 100% Feeding Ability Independent Independent Urine Appearance Uretheral (Lubin) Clear Urine Color Uretheral (Lubin) Pale Weight 106 lb Intake & Output: Intake & Output 05/03/19 05/04/19 05/04/19 21:59 05:59 13:59 Intake Total 1201 225 Balance 1201 225 Weight 106 lb Intake: IV 1201 Sodium Chloride 0.9% 1,000 ml @ 1000 150 mls/hr IV .Q6H40M [facility] Rx#: [id number] Sodium Bicarbonate Vial 150 Meq 201 In Sodium Chloride 0.9% 850 ml @ 0.18 MEQ/KG/HR 57.7 mls/hr IV ONCE ONE Rx#:[id number] Oral 225 Other: Meal Dinner Jello Percent of Meal Consumed 50% 100% Feeding Ability Independent Independent Urine Appearance Uretheral (Lubin) Clear Urine Color Uretheral (Lubin) Pale - Lab 05/04/19 06:59 05/04/19 06:59 Most recent lab results Calcium 9.3 mg/dl (8.6-10.4) 05/04/19 06:59 Phosphorus 2.5 mg/dL (2.7-4.5) L 05/04/19 06:59 Magnesium 1.6 mg/dL (1.6-2.5) 05/04/19 06:59 Assessment and Plan (1) Hyperkalemia Resolved with bicarb, insulin, improved GFR and mineralocorticoid replacement Argues for ARF and adrenal [id number] Status: Acute Priority: High (2) Acute renal failure Improved O/N with IVF and hydrocortisone and improved BP Again, evidence of adrenal insuficiency Status: Acute Priority: High Qualifiers: Acute renal failure type: unspecified Qualified Code(s): N17.9 - Acute kidney failure, unspecified (3) Lupus Seems quiescent as the renal disease is improved and their is no alteration in mental status (her presenting Sx in the past) or significant proteinuria after hydration so I doubt lupus nephritis. F/U complement levels F/U with her primary Rheunatologist in [place] Status: Chronic Priority: Medium Qualifiers: Systemic lupus erythematosus type: other Systemic lupus erythematosus organ involvement: glomerular disease Qualified Code(s): M32.14 - Glomerular disease in systemic lupus erythematosus (4) Adrenal insufficiency due to steroid withdrawal The bad news => I screwed up the cortrosy stim test by forgetting to cancel the first dose of hydrocortisone The good news: The ACTH level may still be high 6 hrs after 1st dose of hydrocortisone More good news: Her symptoms which lead me to suspect adrenal insufficiency have all improved after the 1st dose of stress dose hydrocortisone and her PM cortisol level is innapropriatly low for some one with a BP <100 and Glucose as low as 35. Her BP responded dramatically in 3 hours after the HC which is pretty good physiologic evidence of adrenal insufficiency, as in sorrection of electrolytes, glucose levels remaining higher, increased strength and appetite. In the patients own words, she feels great and wants to go home. I have converted her to 2X the usual dose of hydrocortisone po BID with diurnal variation and anticipate discharge tomorrow. Status: Acute
[2019-05-04] MEDS: LEVOTHYROXINE 88 MCG TABLET PO SCH (10:46)
[2019-05-04] MEDS: HYDROCORTISONE 10 MG TABLET PO SCH (19:24)
[2019-05-04] MEDS: OXYBUTYNIN CHLORIDE 5 MG TAB.XL.24H PO SCH (20:51)
[2019-05-04] MEDS: ATORVASTATIN 20 MG TABLET PO SCH (20:51)
[2019-05-05] MEDS: HYDROcodone/APAP 10/325MG TABLET PO PRN ×3 (00:56→15:23)
[2019-05-05 05:08] LABS: Basophils # (Auto) 0 K/mcL (0.0-0.3); Basophils % (Auto) 0.2 % (0.0-2.0); Eosinophils # (Auto) 0 K/mcL (0.0-0.7); Eosinophils % (Auto) 0.1 % (0.0-7.0); Granulocytes % (Auto) 84.9 % (38.0-78.0); Hematocrit 28.5 % (36.0-48.0); Hemoglobin 9.4 g/dL (12.0-15.0); Lymphocytes # (Auto) 0.7 K/mcL (1.5-4.8); Mean Cell Volume 94.3 fL (80.0-100.0); Mean Corpuscular HGB Conc 32.9 g/dL (31.0-36.0); Mean Platelet Volume 8.9 fL (7.4-10.4); Monocytes # (Auto) 0.1 K/mcL (0.1-0.9); Monocytes % (Auto) 1.8 % (1.0-12.0); Platelet Count 99 K/mcL (140-440); RBC 3.02 M/mcL (4.00-5.20); Red Cell Distribution Width 15.6 % (11.5-14.5)
[2019-05-05] MEDS: 0.9 % SODIUM CHLORIDE 10 ML SYRINGE IV SCH ×3 (05:30→20:28)
[2019-05-05 06:20] LABS: ALT/SGPT 19 U/l (0-40); AST/SGOT 20 U/l (0-37); Albumin 3.3 gm/dL (3.2-5.2); Albumin/Globulin Ratio 1.3 (1.0-2.3); Alkaline Phosphatase 105 U/L (39-117); Bilirubin,Direct < 0.2 mg/dL (0.0-0.3); Bilirubin,Total 0.4 mg/dL (0.0-1.0); Blood Urea Nitrogen 25 mg/dl (8-23); Carbon Dioxide 23 mmol/L (22-30); Chloride 97 mmol/L (96-108); Globulin 2.5 gm/dL (2.2-3.7); Glomerular Filtration Rate 76; Glucose 119 mg/dL (70-105); Lactate Dehydrogenase 196 U/L (94-250); Phosphorous 2.7 mg/dL (2.7-4.5); Triglycerides 68 mg/dl (<150); Uric Acid 6.6 mg/dL (2.5-8.0)
[2019-05-05] MEDS: LEVOTHYROXINE 88 MCG TABLET PO SCH (06:44)
[2019-05-05] MEDS ORDERED: TIOTROPIUM BROMIDE 18 MCG INHALANT INH SCH (09:00)
--- NOTE | 2019-05-05 09:40 | Internal Med Progress Note ---
Medical - PN: Subj Patient information: Note initiated : 05/05/19 at 9:38 am Service Date, if different from initiated Date: [] Patient: Margarita Tovar a 69 y/o F admitted on 05/03/19 for PCP Requested Patient Come To Be Seen. Chief Complaint: [] Interval history: Ms. Tovar is a 69 year old F Who has felt very tired and sleepy for the past week. About 5 days ago she developed a right upper abdominal pain which does she describes as a bruising type of pain not sharp or achy or dull. Nonradiating. She also recently diagnosed with urinary tract infection and was prescribed Bactrim I believe, about a week ago. She was undergoing a abdominal ultrasound today ordered by her primary to work- up abdominal pain when she was called by her primary and and told to go to the ER because of her laboratory work which was done outpatient was abnormal which was her elevated BUN/creatinine and potassium. Patient does not feel any other complaints other than the abdominal pain and the generalized malaise. Denies flank pain, denies urinary symptoms. Has a mild dry cough. He is found to have BUN 49 creatinine of 2.5 and typically she has essentially normal creatinine. Her potassium was 7.8. Dr. Stephenson was contacted ordered to bicarb as well as insulin glucose. Verbal report from ultrasound was unremarkable. Patient is undergoing CT abdomen. 05/04 Feeling good. Slept well. No new complaints. Awaiting endocrine labs and following up renal function and potassium 05/05-patient doing better. No overnight events. No concerns per staff. Renal function normalized with creatinine at baseline. Potassium down to 4.9. Intermittent episodes of bradycardia with heart rate around 30 to 50s. But ligh theadedness dizziness much improved. Patient follows up at [facility] cardiology and will need a follow-up appointment on discharge for evaluation of intermittent bradycardia. Anticipate discharge in 48 hours if clinically continues to improve. - Constitutional Vitals: Vital Signs Temp Pulse Resp BP Pulse Ox 98.5 F 52 L 16 140/60 98 05/05/19 06:35 05/05/19 06:50 05/05/19 06:50 05/05/19 06:35 05/05/19 06:50 Period Temp Pulse Resp BP Sys/Gutierrez Pulse Ox Last 24 Hr 98.1 F-98.7 F 52-70 14-18 135-156/60-73 97-100 Intake and Output 05/04/19 05/05/19 05/05/19 21:59 05:59 13:59 Intake Total 540 480 Output Total 1400 950 Balance -860 -470 Weight 106 lb Intake & Output: Intake & Output 05/04/19 05/05/19 05/05/19 21:59 05:59 13:59 Intake Total 540 480 Output Total 1400 950 Balance -860 -470 Weight 106 lb Intake: Oral 540 480 Output: Urine Catheter Amount 1400 950 Other: Meal Dinner Breakfast Percent of Meal Consumed 75% 100% Feeding Ability Independent Independent Urine Appearance Clear Uretheral (Lubin) Clear Urine Color Straw Uretheral (Lubin) Bright Yellow Stool Size Moderate Stool Color Brown Stool Consistency Formed # Bowel Movements 1 General appearance: no acute distress Exam: Alert oriented Nonlabored breathing No telemetry events no anxiety No lymphedema Medical - PN: Obj Da - Labs CBC & Chem 7: 05/05/19 03:06 05/05/19 03:06 Labs: Abnormal Lab Results 05/05/19 05/05/19 05/04/19 03:06 03:06 06:59 WBC RBC 3.02 L Hgb 9.4 L Hct 28.5 L RDW 15.6 H Plt Count 99 L Gran % 84.9 H Lymph % (Auto) 13.0 L Lymph # (Auto) 0.7 L [place] # (Auto) POC Sodium Sodium POC Potassium Potassium Carbon Dioxide POC Total CO2 POC BUN BUN 25 H Creatinine POC Creatinine Glucose 119 H Calcium POC WB Ioniz Calcium Phosphorus GGT 131 H Alkaline Phosphatase Total Protein 5.8 L Albumin Cortisol AM Sample > 63.4 H Urine Occult Blood Urine RBC Amorphous Crystals Hyaline Casts 05/04/19 05/04/19 05/03/19 06:59 06:59 22:06 WBC 3.3 L RBC 3.34 L Hgb 10.4 L Hct 31.4 L RDW 15.4 H Plt Count 106 L Gran % 83.0 H Lymph % (Auto) 15.4 L Lymph # (Auto) 0.5 L [place] # (Auto) 0 L POC Sodium Sodium POC Potassium Potassium 5.2 H 6.0 H* Carbon Dioxide 21 L POC Total CO2 POC BUN BUN 31 H 41 H Creatinine 1.2 H 1.5 H POC Creatinine Glucose 155 H 160 H Calcium POC WB Ioniz Calcium Phosphorus 2.5 L GGT 141 H Alkaline Phosphatase 121 H Total Protein Albumin 3.1 L Cortisol AM Sample Urine Occult Blood Urine RBC Amorphous Crystals Hyaline Casts 05/03/19 05/03/19 05/03/19 21:24 17:18 13:08 WBC RBC Hgb Hct RDW Plt Count Gran % Lymph % (Auto) Lymph # (Auto) [place] # (Auto) POC Sodium 130 L Sodium POC Potassium 7.8 H* Potassium 5.2 H Carbon Dioxide 17 L POC Total CO2 19 L POC BUN 49 H BUN 42 H Creatinine 1.8 H POC Creatinine 2.6 H Glucose 37 L* Calcium POC WB Ioniz Calcium 1.41 H Phosphorus GGT Alkaline Phosphatase Total Protein Albumin Cortisol AM Sample Urine Occult Blood >=1.0 A Urine RBC 6 H Amorphous Crystals Few A Hyaline Casts 4 H 05/03/19 05/03/19 12:42 12:42 WBC 4.1 L RBC 3.77 L Hgb 11.6 L Hct 35.5 L RDW 15.7 H Plt Count 128 L Gran % Lymph % (Auto) Lymph # (Auto) 1.3 L [place] # (Auto) POC Sodium Sodium 130 L POC Potassium Potassium 7.8 H* Carbon Dioxide 15 L POC Total CO2 POC BUN BUN 49 H Creatinine 2.5 H POC Creatinine Glucose Calcium 10.5 H POC WB Ioniz Calcium Phosphorus GGT Alkaline Phosphatase 144 H Total Protein Albumin Cortisol AM Sample Urine Occult Blood Urine RBC Amorphous Crystals Hyaline Casts Meds: Medications Acetaminophen (Tylenol) 650 mg PO Q6HP PRN PRN Reason: PAIN/FEVER > 101 Hydrocodone Bitart/Acetaminophen ([place] 10/325mg) 1 tab PO Q4HP PRN PRN Reason: Pain Last Admin: 05/05/19 00:56 Dose: 1 tab Documented by: Albuterol Sulfate (Ventolin) 2.5 mg NEB Q2HP PRN PRN Reason: Shortness Of Breath Apixaban (Eliquis) 2.5 mg PO BID [facility] Last Admin: 05/04/19 20:51 Dose: 2.5 mg Documented by: Aspirin (Aspirin) 81 mg PO DAILY [facility] Last Admin: 05/04/19 08:28 Dose: 81 mg Documented by: Atorvastatin Calcium (Lipitor) 40 mg PO QHS [facility] Last Admin: 05/04/19 20:51 Dose: 40 mg Documented by: Carvedilol (Coreg) 3.125 mg PO BIDCC [facility] Last Admin: 05/04/19 17:51 Dose: 3.125 mg Documented by: Docusate Sodium (Colace) 100 mg PO BID [facility] Last Admin: 05/04/19 20:51 Dose: 100 mg Documented by: Famotidine (Pepcid) 20 mg PO BID [facility] Last Admin: 05/04/19 20:51 Dose: 20 mg Documented by: Folic Acid (Folic Acid) 1 mg PO QDAY [facility] Last Admin: 05/04/19 08:28 Dose: 1 mg Documented by: Hydrocortisone (Cortef) 40 mg PO [facility] Hydrocortisone (Cortef) [facility] Last Admin: 05/04/19 19:24 Dose: 20 mg Documented by: Hydroxychloroquine Sulfate (Plaquenil) 200 mg PO QDAY [facility] Last Admin: 05/04/19 08:29 Dose: 200 mg Documented by: Labetalol HCl (Trandate) 0 mg IV Q2HP PRN PRN Reason: Hypertension Levothyroxine [facility]) [facility] Last Admin: 05/05/19 06:44 Dose: 125 mcg Documented by: Nitroglycerin (Nitrostat) 0.4 mg SL Q5M PRN PRN Reason: Chest Pain Oxybutynin Chloride (Ditropan Xl) 10 mg PO QHS [facility] Last Admin: 05/04/19 20:51 Dose: 10 mg Documented by: Symbicort 160-4.5 (Inh) 1 dose INH BID [facility] Last Admin: 05/04/19 20:52 Dose: Not Given Documented by: Polyethylene Glycol (Miralax) 17 gm PO DAILYP PRN PRN Reason: Constipation Prochlorperazine (Compazine) 10 mg PO Q6HP PRN PRN Reason: Nausea Sodium Chloride (Saline Flush) 10 ml IV Q8 [facility] Last Admin: 05/05/19 05:30 Dose: 10 ml Documented by: Tiotropium [place] (Spiriva) 18 mcg INH Q48 [facility] Medical - PN: A/P - Time Spent With Patient Total time spent is greater than 50% in coordination of care (as documented) at patient's floor/unit and/or counseling patient: 25 - 35 minutes (1) Acute renal failure Status: Acute Assessment and plan: * Acute renal failure -creatinine normalized. * Hyperkalemia: 2/2 above, clinically resolved now down from 7.94.9 * Hyponatremia: As noted by Nephrology, highly suspicious for Adrenal insufficiency. Elevated random cortisol * RUQ Abd pain. imaging no acute path * H/o pancytopenia: Has followed with Dr. Estevez -Anemia, thrombocytopenia, leukopenia * AFib: On BB/Eliquis * CAD's w/stent * h/o TIA * COPD (no home oxygen) * Hypothyroidism * SLE: On hydroxychloroquine and methotrexate * GERD * Chronic low back pain: P: * Continue crystalloids monitor renal function * Pre-existing well condition management home meds * Continue anticoagulation on Eliquis * DC Lubin's catheter Current Visit: Yes Medical - PN: Qual - VTE Deep Vein Thrombosis/Pulmonary Embolism Present on Admission: No
[2019-05-05] MEDS: FAMOTIDINE 20 MG TABLET PO SCH ×2 (09:51→20:27)
[2019-05-05] MEDS: APIXABAN 2.5 MG TABLET PO SCH ×2 (09:51→20:27)
[2019-05-05] MEDS: HYDROXYCHLOROQUINE 200 MG TABLET PO SCH (09:51)
[2019-05-05] MEDS: ASPIRIN 81 MG TAB.CHEW PO SCH (09:51)
[2019-05-05] MEDS: CARVEDILOL 3.125 MG TABLET PO SCH ×2 (09:51→17:59)
[2019-05-05] MEDS: DOCUSATE SODIUM 100 MG CAPSULE PO SCH ×2 (09:51→20:27)
[2019-05-05] MEDS: SYMBICORT INH SCH ×2 (09:52→20:28)
[2019-05-05] MEDS: FOLIC ACID 1 MG TABLET PO SCH (09:52)
[2019-05-05] MEDS: HYDROCORTISONE 10 MG TABLET PO SCH ×2 (09:52→18:00)
--- NOTE | 2019-05-05 18:05 | Nephrology Progress Note ---
Subjective Patient information: Note initiated : 05/05/19 at 6:02 pm Service Date, if different from initiated Date: [] Patient: Margarita Tovar 69 y/o F admitted on 05/03/19 for PCP Requested Patient Come To Be Seen. Chief Complaint: [] Principal diagnosis: Hyperkalemia Interval history: Doing better with stress dose Hydrocortisone and volume K, and GFR as well as BP all improved No evidence on randome urine of an active sediment or proteinuria Was on plaquanil for SLE but no hx of nephritis ARF probably to adrenal insufficiency, gi fluid losses, poor po intake and low BP K also improved. Pertinent ROS: nothing to added Additional PMFSH (Level 3 Only): Primary [employer] Machine F[employer] Dr Chaparro Whitmore in [place] Objective - Vital Signs Vital signs: Vital Signs Temp Pulse Resp BP Pulse Ox 05/05/19 15:18 98.2 F 55 L 16 131/45 97 05/05/19 11:13 98.4 F 67 16 138/63 99 05/05/19 06:50 52 L 16 98 05/05/19 06:35 98.5 F 54 L 16 140/60 99 05/05/19 04:00 98.5 F 61 16 149/71 98 05/05/19 00:00 98.7 F 58 L 14 155/66 98 05/04/19 20:00 98.2 F 62 16 156/70 97 Intake and Output 05/05/19 05/05/19 05/05/19 05:59 13:59 21:59 Intake Total 480 Output Total 950 700 350 Balance -470 -700 -350 Intake: Oral 480 Output: Urine Catheter Amount 950 700 Void Amount 350 Other: Meal Breakfast Percent of Meal Consumed 100% Feeding Ability Independent Urine Appearance Clear Clear Clear Uretheral (Lubin) Clear Urine Color Straw Dark Yellow Pale Uretheral (Lubin) Bright Yellow Urine Odor Normal Normal Stool Size Moderate Stool Color Brown Stool Consistency Formed # Bowel Movements 1 Intake & Output: Intake & Output 05/05/19 05/05/19 05/05/19 05:59 13:59 21:59 Intake Total 480 Output Total 950 700 350 Balance -470 -700 -350 Intake: Oral 480 Output: Urine Catheter Amount 950 700 Void Amount 350 Other: Meal Breakfast Percent of Meal Consumed 100% Feeding Ability Independent Urine Appearance Clear Clear Clear Uretheral (Lubin) Clear Urine Color Straw Dark Yellow Pale Uretheral (Lubin) Bright Yellow Urine Odor Normal Normal Stool Size Moderate Stool Color Brown Stool Consistency Formed # Bowel Movements 1 - General Appearance General appearance: cachectic, chronically ill, frail EENT: ATNC Neck: no JVD, no thyromegaly Respiratory: no kyphosis, no scoliosis Cardiology: no murmurs, no rub, no gallops Gastrointestinal: normoactive bowel sounds, no tenderness Integumentary: hyperkeratosis Neurologic: no focal deficit, no asterixis, alert and oriented x3, CN 3-12 intact Musculoskeletal: no deformities, no erythema Psychiatric: mood/affect appropriate - Lab 05/05/19 03:06 05/05/19 03:06 Most recent lab results Calcium 9.0 mg/dl (8.6-10.4) 05/05/19 03:06 Phosphorus 2.7 mg/dL (2.7-4.5) 05/05/19 03:06 Magnesium 1.6 mg/dL (1.6-2.5) 05/05/19 03:06 Assessment and Plan (1) Hyperkalemia Resolved with bicarb, insulin, improved GFR and mineralocorticoid replacement Argues for ARF and adrenal [id number] RESOLVED Status: Acute Priority: High (2) Acute renal failure Improved O/N with IVF and hydrocortisone and improved BP Again, evidence of adrenal insuficiency RESOLVED Status: Acute Priority: High Qualifiers: Acute renal failure type: unspecified Qualified Code(s): N17.9 - Acute kidney failure, unspecified (3) Lupus Seems quiescent as the renal disease is improved and their is no alteration in mental status (her presenting Sx in the past) or significant proteinuria after hydration so I doubt lupus nephritis. F/U complement levels F/U with her primary Rheunatologist in [place]: Dr Chaparro Whitmore Status: Chronic Priority: Medium Qualifiers: Systemic lupus erythematosus type: other Systemic lupus erythematosus organ involvement: glomerular disease Qualified Code(s): M32.14 - Glomerular disease in systemic lupus erythematosus (4) Adrenal insufficiency due to steroid withdrawal The bad news => I screwed up the cortrosy stim test by forgetting to cancel the first dose of hydrocortisone The good news: The ACTH level may still be high 6 hrs after 1st dose of hydrocortisone More good news: Her symptoms which lead me to suspect adrenal insufficiency have all improved after the 1st dose of stress dose hydrocortisone and her PM cortisol level is innapropriatly low for some one with a BP <100 and Glucose as low as 35. Her BP responded dramatically in 3 hours after the HC which is pretty good physiologic evidence of adrenal insufficiency, as in sorrection of electrolytes, glucose levels remaining higher, increased strength and appetite. In the patients own words, she feels great and wants to go home. I have converted her to 2X the usual dose of hydrocortisone po BID with diurnal variation and anticipate discharge tomorrow. Status: Acute
[2019-05-05] MEDS: OXYBUTYNIN CHLORIDE 5 MG TAB.XL.24H PO SCH (20:27)
[2019-05-05] MEDS: ATORVASTATIN 20 MG TABLET PO SCH (20:27)
[2019-05-06] MEDS: HYDROcodone/APAP 10/325MG TABLET PO PRN ×2 (01:35→08:24)
[2019-05-06] MEDS: 0.9 % SODIUM CHLORIDE 10 ML SYRINGE IV SCH (06:08)
--- NOTE | 2019-05-06 06:22 | Nephrology Progress Note ---
Subjective Patient information: Note initiated : 05/06/19 at 6:20 am Patient: Margarita Tovar 69 y/o F admitted on 05/03/19 for PCP Requested P atient Come To Be Seen. Chief Complaint: Weakness Pertinent ROS: Weakness Objective - Vital Signs Vital signs: Vital Signs Temp Pulse Resp BP Pulse Ox 05/06/19 04:00 98.7 F 58 L 16 141/75 99 05/06/19 00:00 98.4 F 61 14 138/71 98 05/05/19 20:00 98.8 F 55 L 16 145/74 97 05/05/19 15:18 98.2 F 55 L 16 131/45 97 05/05/19 11:13 98.4 F 67 16 138/63 99 05/05/19 06:50 52 L 16 98 05/05/19 06:35 98.5 F 54 L 16 140/60 99 Intake and Output 05/05/19 05/06/19 05/06/19 21:59 05:59 13:59 Intake Total 240 Output Total 600 500 Balance -360 -500 Intake: Oral 240 Output: Void Amount 600 500 Other: Meal Dinner snack Percent of Meal Consumed 90% 75% Feeding Ability Independent Urine Appearance Clear Clear Urine Color Bright Yellow Bright Yellow Urine Odor Normal Weight 107 lb 8 oz Intake & Output: Intake & Output 05/05/19 05/06/19 05/06/19 21:59 05:59 13:59 Intake Total 240 Output Total 600 500 Balance -360 -500 Weight 107 lb 8 oz Intake: Oral 240 Output: Void Amount 600 500 Other: Meal Dinner snack Percent of Meal Consumed 90% 75% Feeding Ability Independent Urine Appearance Clear Clear Urine Color Bright Yellow Bright Yellow Urine Odor Normal - General Appearance General appearance: fatigue EENT: mucous membranes moist Neck: supple Respiratory: clear Cardiology: no edema Gastrointestinal: no tenderness Integumentary: warm and dry Neurologic: no focal deficit, alert and oriented x3 Musculoskeletal: no deformities Psychiatric: mood/affect appropriate, cooperative - Lab 05/05/19 03:06 05/06/19 03:20 Most recent lab results Calcium 9.0 mg/dl (8.6-10.4) 05/05/19 03:06 Phosphorus 2.7 mg/dL (2.7-4.5) 05/05/19 03:06 Magnesium 1.6 mg/dL (1.6-2.5) 05/05/19 03:06 Assessment and Plan (1) Acute renal failure Margarita Tovar is a 69-year-old female with SLE, admitted on 05/03/19. Acute kidney injury with initial hyperkalemia, metabolic acidosis and hyponat remia, present on arrival. Work up: Urinalysis on 05/03/19: Yellow, Clear, pH 5.0, SG 1.013, protein negative, occult blood >1.0, leukocyte esterase negative. CT Abdomen and Pelvis without contrast on 05/03/19: Mild bilateral renal atrophy. Scattered small nonobstructing stones in the calyces of both kidneys. Progress: Acute kidney injury with initial hyperkalemia, metabolic acidosis and hypon atremia, resolved. Adrenal insufficiency due to steroid withdrawal, improved. Urine output: 1800 ml reported in the past 24 hours. Plan: Nephrology will sign off. Status: Resolved Priority: High Qualifiers: Acute renal failure type: unspecified Qualified Code(s): N17.9 - Acute kidney failure, unspecified
[2019-05-06 07:22] LABS: Albumin 3.1 gm/dL (3.2-5.2); Blood Urea Nitrogen 22 mg/dl (8-23); Calcium 8.9 mg/dl (8.6-10.4); Carbon Dioxide 22 mmol/L (22-30); Chloride 100 mmol/L (96-108); Glomerular Filtration Rate 58; Glucose 105 mg/dL (70-105); Phosphorous 2.2 mg/dL (2.7-4.5)
[2019-05-06] MEDS: LEVOTHYROXINE 88 MCG TABLET PO SCH (07:56)
[2019-05-06] MEDS: CARVEDILOL 3.125 MG TABLET PO SCH (07:56)
[2019-05-06] MEDS: HYDROCORTISONE 10 MG TABLET PO SCH (07:57)
[2019-05-06] MEDS: DOCUSATE SODIUM 100 MG CAPSULE PO SCH (08:28)
[2019-05-06] MEDS: ASPIRIN 81 MG TAB.CHEW PO SCH (08:28)
[2019-05-06] MEDS: FOLIC ACID 1 MG TABLET PO SCH (08:28)
[2019-05-06] MEDS: SYMBICORT INH SCH (08:34)
[2019-05-06] MEDS: APIXABAN 2.5 MG TABLET PO SCH (08:35)
[2019-05-06] MEDS: HYDROXYCHLOROQUINE 200 MG TABLET PO SCH (08:35)
[2019-05-06] MEDS: FAMOTIDINE 20 MG TABLET PO SCH (08:35)
--- NOTE | 2019-05-06 10:17 | Discharge Summary ---
Medical - DS: Prov Patient information: Note initiated : 05/06/19 at 10:10 am Service Date, if different from initiated Date: [] Patient: Margarita Tovar 69 y/o F admitted on 05/03/19 for PCP Requested Patient Come To Be Seen. Chief Complaint: [] Date of admission: 05/03/19 17:40 Discharge date: 05/06/19 Primary care physician: Denise Cid Consults: 05/03/19 Consult to Physician [CONS] Stat Comment: Consulting Provider: Maurice Fernandes Reason For Exam: Physician to Consult 05/03/19 15:48 Consult to Physician [CONS] Routine Comment: Consulting Provider: Travis Stephenson Reason For Exam: Physician to Consult Medical - DS: Meds - Discharge Medications Prescriptions: Carvedilol [Coreg] 3.125 mg PO BIDCC #30 tab Hydrocortisone [Cortef] 40 mg PO QAMCC #14 tab Hydrocortisone [Cortef] 20 mg PO QPMCC #14 tab Active and Home Medications: Home Medications atorvastatin 40 mg tablet 40 mg PO QHS 10/16/15 [History Confirmed 05/03/19 Last Taken 05/02/19 18:00] budesonide-formoterol HFA 160 mcg-4.5 mcg/actuation aerosol inhaler 1 inh INHALATION BID g 10/16/15 [History Confirmed 05/03/19 Last Taken 05/02/19 18:00] cholecalciferol (vitamin D3) 50,000 unit tablet 50,000 unit PO DAILY 10/16/15 [History Confirmed 05/03/19 Last Taken 05/02/19 05:00] cyanocobalamin (vit B-12) 1,000 mcg/mL injection solution See Dose Instructions IM QMONTH 10/16/15 [History Confirmed 05/03/19 Last Taken 04/20/19] ferrous sulfate 325 mg (65 mg iron) tablet 325 mg PO QNOON 10/16/15 [History Confirmed 05/03/19 Last Taken 04/25/19] folic acid 1 mg tablet 1 mg PO QDAY 10/16/15 [History Confirmed 05/03/19 Last Taken 05/03/19 05:00] furosemide 20 mg tablet 20 mg PO QDAY PRN 10/16/15 [History Confirmed 05/03/19 Last Taken 04/11/18] hydrocodone 10 mg-acetaminophen 325 mg tablet 1 tab PO Q4H PRN 10/16/15 [History Confirmed 05/03/19 Last Taken 05/03/19 05:00] hydroxychloroquine 200 mg tablet 200 mg PO QDAY tab 10/16/15 [History Confirmed 05/03/19 Last Taken 05/03/19 05:00] levothyroxine 88 mcg tablet 125 mcg PO QDAY 10/16/15 [History Confirmed 05/03/19 Last Taken 05/03/19 05:00] methotrexate sodium 2.5 mg tablet See Dose Instructions PO VAZQUEZ tab 10/16/15 [History Confirmed 05/03/19 Last Taken 05/01/19 05:00] nitroglycerin 0.4 mg sublingual tablet 0.4 mg SUBLINGUAL Q5MIN PRN 10/16/15 [History Confirmed 05/03/19 Last Taken Unknown] oxybutynin chloride ER 10 mg tablet,extended release 24 hr 10 mg PO QHS tab 10/16/15 [History Confirmed 05/03/19 Last Taken 05/02/19 18:00] polyethylene glycol 3350 17 gm PO DAILY PRN 10/16/15 [History Confirmed 05/03/19 Last Taken 11/07/15] potassium chloride ER 10 mEq tablet,extended release 10 meq PO TID tab 10/16/15 [History Confirmed 05/03/19 Last Taken 04/29/19] prochlorperazine maleate 10 mg tablet 10 mg PO Q6H PRN 10/16/15 [History Confirmed 05/03/19 Last Taken 05/01/19] ranitidine 150 mg tablet 150 mg PO BID tab 10/16/15 [History Confirmed 05/03/19 Last Taken 05/03/19 05:00] tiotropium bromide 18 mcg capsule with inhalation device 18 mcg INHALATION Q48 10/16/15 [History Confirmed 05/03/19 Last Taken 05/02/19 05:00] Apixaban [Eliquis] 1 tab PO BID 05/03/19 [History Confirmed 05/03/19 Last Taken 05/03/19 05:00] Aspirin [Sabine Chewable Aspirin] 81 mg PO DAILY 05/03/19 [History Confirmed 05/03/19 Last Taken 05/03/19 05:00] Multivit-Min/Iron/Folic/Lutein [Multivitamin Women 50 Plus Tab] 1 each PO DAILY 05/03/19 [History Confirmed 05/03/19 Last Taken 04/27/19 05:00] Carvedilol [Coreg] 3.125 mg PO BIDCC #30 tab 05/06/19 [Rx Last Taken Unknown] Hydrocortisone [Cortef] 20 mg PO QPMCC #14 tab 05/06/19 [Rx Last Taken Unknown] Hydrocortisone [Cortef] 40 mg PO QAC #14 tab 05/06/19 [Rx Last Taken Unknown] Medical - DS: Hosp Hospital course: Discharge diagnosis * Acute renal failure -creatinine normalized. Managed by nephrology * Hyperkalemia: 2/2 above and underlying adrenal insufficiency, clinically resolved now down from 7.94.9 * Hyponatremia: Clinically improved. Secondary to adrenal insufficiency * Adrenal insufficiency. Patient started on hydrocortisone per nephrology recommendations. * RUQ Abd pain. Clinically resolved. Imaging negative. * H/o pancytopenia: Has followed with Dr. Estevez. Continue outpatient follow-up as scheduled * Intermittent bradycardia-Coreg dose lowered to 3.125 . Recommend following up with cardiology Dr. Navas in 5 to 7 days * History of carotid artery stenosis-patient scheduled for vascular intervention at [facility]. * AFib: Continue BB/Eliquis * CAD's w/stent-continue aspirin/Eliquis/statin * COPD (no home oxygen) * Hypothyroidism continue thyroxine * SLE: On hydroxychloroquine and methotrexate. * GERD * Chronic low back pain: Stable Brief hospital course Ms. Tovar is a 69 year old F Who has felt very tired and sleepy for the past week. About 5 days ago she developed a right upper abdominal pain which does she describes as a bruising type of pain not sharp or achy or dull. Nonradiating. She also recently diagnosed with urinary tract infection and was prescribed Bactrim I believe, about a week ago. She was undergoing a abdominal ultrasound today ordered by her primary to work- up abdominal pain when she was called by her primary and and told to go to the ER because of her laboratory work which was done outpatient was abnormal which was her elevated BUN/creatinine and potassium. Patient does not feel any other complaints other than the abdominal pain and the generalized malaise. Denies flank pain, denies urinary symptoms. Has a mild dry cough. He is found to have BUN 49 creatinine of 2.5 and typically she has essentially normal creatinine. Her potassium was 7.8. Dr. Stephenson was contacted ordered to bicarb as well as insulin glucose. Verbal report from ultrasound was unremarkable. Patient is undergoing CT abdomen. 05/04 Feeling good. Slept well. No new complaints. Awaiting endocrine labs and following up renal function and potassium 05/05-patient doing better. No overnight events. No concerns per staff. Renal function normalized with creatinine at baseline. Potassium down to 4.9. Intermittent episodes of bradycardia with heart rate around 30 to 50s. But lightheadedness dizziness much improved. Patient follows up at [facility] cardiology and will need a follow-up appointment on discharge for evaluation of intermittent bradycardia. Anticipate discharge in 48 hours if clinically continues to improve. 05/06-patient doing well. No overnight events. Feels a lot better. Renal function stabilized. Discharging on recommendation as per nephrology on FOBT hydrocortisone a.m. and 20 p.m. along with dose reduction on Coreg to 3.125 twice daily. Patient will follow-up with nephrology in 1 week as outpatient. Detailed discharge instructions provided. No overnight fever chills or additional concerns per nursing staff Discharge diagnosis: . - Time Spent with Patient Total time spent providing and/or coordinating discharge services: Greater than 30 minutes Medical - DS: Exam - Constitutional Vitals: Vital Signs Temp Pulse Resp BP Pulse Ox 05/06/19 07:59 97 F 20 154/79 98 05/06/19 04:00 98.7 F 58 L 16 141/75 99 05/06/19 00:00 98.4 F 61 14 138/71 98 05/05/19 20:00 98.8 F 55 L 16 145/74 97 05/05/19 15:18 98.2 F 55 L 16 131/45 97 05/05/19 11:13 98.4 F 67 16 138/63 99 Intake and Output 05/05/19 05/06/19 05/06/19 21:59 05:59 13:59 Intake Total 240 120 Output Total 600 500 200 Balance -360 -500 -80 Intake: Oral 240 120 Output: Void Amount 600 500 200 # of times incontinent of urine 0 Other: Meal Dinner snack Breakfast Percent of Meal Consumed 90% 75% 100% Feeding Ability Independent Urine Appearance Clear Clear Clear Urine Color Bright Yellow Bright Yellow Bright Yellow Urine Odor Normal Normal # Voids 0 Weight 107 lb 8 oz Medical - DS: Data Labs on day of discharge: Labs from last 24 hours 05/06/19 03:20 Sodium 135 Potassium 4.9 Chloride 100 Carbon Dioxide 22 Anion Gap 13.0 BUN 22 Creatinine 1.0 GFR Calculation 58 Glucose 105 Calcium 8.9 Phosphorus 2.2 L Albumin 3.1 L Medical - DS: A/P - Patient/Caregiver Discharge Instructions Activity: increase activity as tolerated Diet: Regular Diet Additional Instructions: Continue Coreg and hydrocortisone as doses advised Follow-up with nephrology in [address] Bowman Follow-up PCP in 5 to 7 days Recommend following up with cardiology at [facility] Dr. Navas for evaluation of bradycardia. Coreg dose lowered to 3.125 twice daily Return to ER if lightheadedness dizziness noted Continue diet and activity as advised Continue anticoagulation Eliquis Follow-up with hematology for management of pancytopenia Prescriptions: Carvedilol [Coreg] 3.125 mg PO BIDCC #30 tab Hydrocortisone [Cortef] 40 mg PO QAMCC #14 tab Hydrocortisone [Cortef] 20 mg PO QPMCC #14 tab - Problem Maintenance (1) Acute renal failure Status: Resolved Qualifiers: Acute renal failure type: unspecified Qualified Code(s): N17.9 - Acute kidney failure, unspecified - Follow up Plan Follow up with: Bijan Navas MD [Physician] - (Dr. Navas's office will contact you to schedule an appointment after reviewing your chart.) Denise Cid, [employer] [Primary Care Provider] - 05/10/19 10:45 am (Please arrive at 10:35) Disposition: Home, Self-Care Prognosis: Fair Rehab Potential: Fair I certify that the patient requires SNF services: No Overall status at discharge: patient is back to baseline Medical - DS: Qual - VTE Deep Vein Thrombosis/Pulmonary Embolism Present on Admission: No
[2019-05-10 10:42] LABS: C3, Serum 111 mg/dL (83-193); C4, Serum 18 mg/dL (15-57)
== END 2019-05-06 13:34 | disposition home or self-care (01) | DRG 683 ==
LOC: ED 11:59 → MEDSUR 17:40 → ICU 05-04 19:36
PROVIDERS: ADMIT Internal Medicine; ATTEND Internal Medicine

== ENCOUNTER 2019-06-12 16:01 | Observation (INO) ==
[2019-06-12] MEDS ORDERED: LABETALOL 5 MG/ML ML IV ONE ×2 (16:51→18:42)
[2019-06-12] MEDS ORDERED: LABETALOL 500 MG in DEXTROSE 5% IN WATER 150 ML IV SCH (17:00)
[2019-06-12 17:15] LABS: Basophils # (Auto) 0 K/mcL (0.0-0.3); Basophils % (Auto) 0.2 % (0.0-2.0); Eosinophils # (Auto) 0.1 K/mcL (0.0-0.7); Eosinophils % (Auto) 1.1 % (0.0-7.0); Granulocytes % (Auto) 61.8 % (38.0-78.0); Hematocrit 38.6 % (36.0-48.0); Hemoglobin 12.5 g/dL (12.0-15.0); Lymphocytes # (Auto) 1.3 K/mcL (1.5-4.8); Lymphocytes % (Auto) 26.6 % (15.5-49.0); Mean Cell Volume 97.9 fL (80.0-100.0); Mean Corpuscular HGB Conc 32.3 g/dL (31.0-36.0); Mean Platelet Volume 7.8 fL (7.4-10.4); Monocytes # (Auto) 0.5 K/mcL (0.1-0.9); Monocytes % (Auto) 10.3 % (1.0-12.0); Platelet Count 193 K/mcL (140-440); RBC 3.95 M/mcL (4.00-5.20); Red Cell Distribution Width 18.3 % (11.5-14.5); WBC 4.9 K/mcL (4.5-11.0)
[2019-06-12 17:33] LABS: ALT/SGPT 15 U/l (0-40); AST/SGOT 20 U/l (0-37); Albumin 4.6 gm/dL (3.2-5.2); Albumin/Globulin Ratio 1.8 (1.0-2.3); Alkaline Phosphatase 76 U/L (39-117); Bilirubin,Total 0.7 mg/dL (0.0-1.0); Blood Urea Nitrogen 10 mg/dl (8-23); Calcium 9.8 mg/dl (8.6-10.4); Carbon Dioxide 26 mmol/L (22-30); Chloride 96 mmol/L (96-108); Globulin 2.6 gm/dL (2.2-3.7); Glomerular Filtration Rate 76; Glucose 97 mg/dL (70-105)
--- NOTE | 2019-06-12 17:52 | Emergency Department Note ---
Headache HPI - General Chief Complaint: Blood Pressure Problem Stated Complaint: HTN and headache Time Seen by Provider: 06/12/19 16:19 Mode of arrival: EMS - History of Present Illness HPI Narrative: 69-year-old female presents with headache and hypertension. States she had a severe headache at home. She was seen here in the ER yesterday and given IV doses of labetalol and amlodipine and was sent home after some improvement. She also increased her dosing which she has done and followed however today her headache was even worse so she called EMS to come get her. On arrival her blood pressure was 250s over 140s and 150s. She had 2 doses of nitro in the field. States her headache is so severe that she has a hard time getting her words out at times. Denies any fall, trauma, or injury. No fever chills. No cough or cold symptoms. No chest pain or shortness of breath. - Related Data Home Medications Medication Instructions Recorded Confirmed atorvastatin 40 mg tablet 40 mg PO QHS 10/16/15 05/20/19 budesonide-formoterol HFA 160 1 inh INHALATION BID g 10/16/15 05/20/19 mcg-4.5 mcg/actuation aerosol inhaler cholecalciferol (vitamin D3) 50,000 unit PO DAILY 10/16/15 05/20/19 50,000 unit tablet cyanocobalamin (vit B-12) 1,000 See Dose Instructions IM QMONTH 10/16/15 05/20/19 mcg/mL injection solution ferrous sulfate 325 mg (65 mg 325 mg PO QNOON 10/16/15 05/20/19 iron) tablet folic acid 1 mg tablet 1 mg PO QDAY 10/16/15 05/20/19 hydrocodone 10 mg-acetaminophen 1 tab PO Q4H PRN 10/16/15 05/20/19 325 mg tablet methotrexate sodium 2.5 mg tablet See Dose Instructions PO VAZQUEZ tab 10/16/15 05/20/19 nitroglycerin 0.4 mg sublingual 0.4 mg SUBLINGUAL Q5MIN PRN 10/16/15 05/20/19 tablet polyethylene glycol 3350 17 gm PO DAILY PRN 10/16/15 05/20/19 prochlorperazine maleate 10 mg 10 mg PO Q6H PRN 10/16/15 05/03/19 tablet tiotropium bromide 18 mcg capsule 18 mcg INHALATION Q48 10/16/15 05/20/19 with inhalation device Apixaban [Eliquis] 1 tab PO BID 05/03/19 05/20/19 Aspirin [Sabine Chewable Aspirin] 81 mg PO DAILY 05/03/19 05/20/19 Multivit-Min/Iron/Folic/Lutein 1 each PO DAILY 05/03/19 05/20/19 [Multivitamin Women 50 Plus Tab] clopidogrel 75 mg tablet 75 mg PO QDAY 05/20/19 05/20/19 levothyroxine 88 mcg tablet 75 mcg PO QDAY tab 05/20/19 05/20/19 lisinopril 40 mg tablet 40 mg PO QDAY 05/20/19 05/20/19 methocarbamol 500 mg tablet 500 mg PO QID 05/20/19 05/20/19 pantoprazole 40 mg tablet,delayed 40 mg PO QDAY 05/20/19 05/20/19 release Previous Rx's Medication Instructions Recorded hydrocortisone 10 mg tablet 10 mg PO .COMPLEX #90 tab 05/20/19 Carvedilol [Coreg] 6.25 mg PO BID #60 tab 06/11/19 Allergies Allergy/AdvReac Type Severity Reaction Status Date / Time tetracycline Allergy Mild Hives Verified 06/12/19 16:09 baclofen AdvReac Mild Dizziness Verified 06/12/19 16:09 Review of Systems All systems ED: reviewed and negative except as stated. Headache PMH - Past Medical History [facility] Narrative: Medical History (Last Updated 06/11/19 @ 08:40 by Broderick Fernando DO) halfway (current) use of anticoagulants (Chronic) History of atrial fibrillation (Chronic) Heart attack (Chronic) CAD (coronary artery disease) (Chronic) Rheumatoid arthritis (Chronic) Lupus (Chronic) intermission coordinator (current) use of opiate analgesic (Chronic) Adrenal insufficiency due to steroid withdrawal (Chronic) GERD (gastroesophageal reflux disease) (Chronic) Hypothyroidism, acquired (Chronic) Acute renal failure (Resolved) Acute prerenal azotemia (Resolved) Gall stones (Chronic) Kidney stones (Chronic) Compression fracture (Chronic) Vitamin B12 deficiency (Chronic) Anemia (Chronic) Hyperlipemia (Chronic) Hypertension (Chronic) H/O: hysterectomy (Chronic) Gastritis (Resolved) Herpes zoster (Resolved) Hyperkalemia (Resolved) Past Surgical History (Last Updated 06/11/19 @ 08:37 by Broderick Fernando DO) Stented coronary artery (Chronic) History of breast biopsy (Chronic) History of tonsillectomy and adenoidectomy (Chronic) Medical history: Denies: DVT, ROSS, pulmonary embolus - Social History smoking status: Former smoker Alcohol use: Reports: None Drug use: Reports: none Physical Exam General appearance: alert, other (Appears in pain) Head: atraumatic, normocephalic, normal inspection Eye: Present: normal appearance, PERRL. Absent: conjunctival injection ENT: Present: normal exam, normal oropharynx, mucous membranes moist, TM's normal bilaterally, normal external ear exam Neck: Present: normal inspection, trachea midline. Absent: tenderness, lymphadenopathy Chest: Present: symmetric chest wall rise Respiratory: Present: normal lung sounds bilaterally. Absent: respiratory distress, rales/crackles, wheezes, accessory muscle use Cardiovascular: Present: regular rate, normal heart sounds Extremities: Present: normal inspection. Absent: pedal edema Neurological: Present: alert, oriented X3 Psychiatric: Present: normal affect, normal mood Skin: Present: warm, dry, intact, normal color. Absent: rash, hives, cyanosis, diaphoresis Course Course Narrative: At 1800 I did speak with the hospitalist, Dr. Burr. He would like us to contact nephrology, Dr. Stephenson. I did speak with him and he would like us to give 0.2 mg of clonidine and then call him back in an hour. Patient then started having nausea and vomiting. We are able to get her nausea under control and then give her the clonidine. At 1940 she is now 180s over 80 but still has a severe headache. We will give her a dose of Dilaudid for pain. I did talk to nephrology again and he would like to admit the patient. Is coming in to see her. Vital Signs Temperature 97.9 F 06/12/19 16:02 Pulse Rate 84 06/12/19 16:02 Respiratory Rate 16 06/12/19 16:02 Blood Pressure 200/92 06/12/19 16:02 Pulse Oximetry (%) 94 06/12/19 16:02 Temperature 97.9 F 06/12/19 16:02 Pulse Rate 80 06/12/19 19:31 Respiratory Rate 22 06/12/19 19:32 Blood Pressure 180/81 06/12/19 19:32 Pulse Oximetry (%) 97 06/12/19 19:31 Headache - Lab Data Lab results reviewed: Yes I reviewed the patient's lab results. Result diagrams: 06/12/19 16:45 06/12/19 16:45 Lab Results 06/12/19 06/12/19 06/12/19 Range/Units 16:28 16:45 16:45 WBC 4.9 (4.5-11.0) K/mcL RBC 3.95 L (4.00-5.20) M/mcL Hgb 12.5 (12.0-15.0) g/dL Hct 38.6 (36.0-48.0) % MCV 97.9 (80.0-100.0) fL MCH 31.6 (26.0-34.0) pg MCHC 32.3 (31.0-36.0) g/dL RDW 18.3 H (11.5-14.5) % Plt Count 193 (140-440) K/mcL MPV 7.8 (7.4-10.4) fL Gran % 61.8 (38.0-78.0) % Lymph % (Auto) 26.6 (15.5-49.0) % [place] % (Auto) 10.3 (1.0-12.0) % Eos % (Auto) 1.1 (0.0-7.0) % Baso % (Auto) 0.2 (0.0-2.0) % Gran # 3.1 (1.8-8.0) K/mcL Lymph # (Auto) 1.3 L (1.5-4.8) K/mcL [place] # (Auto) 0.5 (0.1-0.9) K/mcL Eos # (Auto) 0.1 (0.0-0.7) K/mcL Baso # (Auto) 0 (0.0-0.3) K/mcL Sodium 138 (133-145) mmol/L Potassium 3.8 (3.3-5.1) mmol/L Chloride 96 (96-108) mmol/L Carbon Dioxide 26 (22-30) mmol/L Anion Gap 16.0 (8-16) BUN 10 (8-23) mg/dl Creatinine 0.8 (0.6-1.1) mg/dl GFR Calculation 76 Glucose 97 (70-105) mg/dL Calcium 9.8 (8.6-10.4) mg/dl Total Bilirubin 0.7 (0.0-1.0) mg/dL AST 20 (0-37) U/l ALT 15 (0-40) U/l Alkaline Phosphatase 76 (39-117) U/L Troponin T (0-0.03) ng/ml Total Protein 7.2 (5.9-8.4) gm/dL Albumin 4.6 (3.2-5.2) gm/dL Globulin 2.6 (2.2-3.7) gm/dL Albumin/Globulin Ratio 1.8 (1.0-2.3) Urine Color Colorless Urine Appearance Clear Urine pH 9.0 (5.0-9.0) Ur Specific [place] 1.008 (1.000-1.035) Urine Protein Neg (NEG) mg/dL Urine Glucose (UA) Negative (NEG) mg/dL Urine Ketones Neg (NEG) mg/dL Urine Occult Blood Neg (<0.03) mg/dL Urine Nitrate Neg (NEG) Urine Bilirubin Neg (NEG) mg/dL Urine Urobilinogen Neg (NEG) mg/dL Ur Leukocyte Esterase Neg (NEG) /uL Ur Culture Indicated? No 06/12/19 Range/Units 16:45 WBC (4.5-11.0) K/mcL RBC (4.00-5.20) M/mcL Hgb (12.0-15.0) g/dL Hct (36.0-48.0) % MCV (80.0-100.0) fL MCH (26.0-34.0) pg MCHC (31.0-36.0) g/dL RDW (11.5-14.5) % Plt Count (140-440) K/mcL MPV (7.4-10.4) fL Gran % (38.0-78.0) % Lymph % (Auto) (15.5-49.0) % [place] % (Auto) (1.0-12.0) % Eos % (Auto) (0.0-7.0) % Baso % (Auto) (0.0-2.0) % Gran # (1.8-8.0) K/mcL Lymph # (Auto) (1.5-4.8) K/mcL [place] # (Auto) (0.1-0.9) K/mcL Eos # (Auto) (0.0-0.7) K/mcL Baso # (Auto) (0.0-0.3) K/mcL Sodium (133-145) mmol/L Potassium (3.3-5.1) mmol/L Chloride (96-108) mmol/L Carbon Dioxide (22-30) mmol/L Anion Gap (8-16) BUN (8-23) mg/dl Creatinine (0.6-1.1) mg/dl GFR Calculation Glucose (70-105) mg/dL Calcium (8.6-10.4) mg/dl Total Bilirubin (0.0-1.0) mg/dL AST (0-37) U/l ALT (0-40) U/l Alkaline Phosphatase (39-117) U/L Troponin T < 0.01 (0-0.03) ng/ml Total Protein (5.9-8.4) gm/dL Albumin (3.2-5.2) gm/dL Globulin (2.2-3.7) gm/dL Albumin/Globulin Ratio (1.0-2.3) Urine Color Urine Appearance Urine pH (5.0-9.0) Ur Specific [place] (1.000-1.035) Urine Protein (NEG) mg/dL Urine Glucose (UA) (NEG) mg/dL Urine Ketones (NEG) mg/dL Urine Occult Blood (<0.03) mg/dL Urine Nitrate (NEG) Urine Bilirubin (NEG) mg/dL Urine Urobilinogen (NEG) mg/dL Ur Leukocyte Esterase (NEG) /uL Ur Culture Indicated? - Radiology Data Radiology results reviewed: Yes I reviewed the patient's radiology results. Disposition Pt seen by AUTO BODY REPAIRER/PA only: Yes Clinical Impression: Hypertension, Headache Disposition: Xfer As Outpt/Obs (TS) Condition: Fair Referrals: Denise Cid ARNP [Primary Care Provider] - Time of Disposition: 00:12
[2019-06-12 17:55] LABS: Appearance,Urine CLEAR; Bilirubin,Urine NEG (NEG); Color,Urine COLORLESS; Culture Indicated,Urine NO; Glucose,Urine (UA) NEGATIVE (NEG); Ketones,Urine NEG (NEG); Leukocyte Esterase,Urine NEG /uL (NEG); Nitrate,Urine NEG (NEG); Protein,Urine NEG (NEG); Specific Gravity,Urine 1.008 (1.000-1.035); Urine Blood NEG mg/dL (<0.03); Urobilinogen,Urine NEG (NEG)
[2019-06-12] MEDS ORDERED: cloNIDine HCL 0.1 MG TABLET PO SCH (18:15)
[2019-06-12] MEDS ORDERED: ONDANSETRON 4 MG/2 ML VIAL IV ONE (18:41)
[2019-06-12] MEDS: 0.9 % SODIUM CHLORIDE 250 ML IV SCH (18:48)
--- NOTE | 2019-06-12 19:25 | Cat Scan Report ---
CLINICAL INFORMATION: Severe headache and hypertension COMPARISON: None. TECHNIQUE: 2.5 mm helical slices were obtained in the skull base to vertex. Following reconstruction, axial reformatted images were reviewed at bone and parenchymal windows. The exam was performed using radiation dose optimization techniques including, but not limited to, automated exposure control, adjustment of the mA and/or kV according to patient size and use of iterative reconstruction technique. FINDINGS: The ventricles, sulci, fissures, and cisterns are symmetrically enlarged compatible with mild atrophy - expected for age - no subdural hemorrhage or extra-axial fluid collection or mass appreciated. Patchy chronic ischemic changes in the cerebral white matter expected for age. Two punctate remote lacunar infarct is noted within the central midbrain and guillaume. This could also merely represent artifact. There is no cerebral hemorrhage, mass effect, edema or other acute finding. Bone windows show no osseous abnormality. IMPRESSION: Mild atrophy with minimal chronic ischemic changes in deep cerebral white matter with a few equivocal punctate remote lacunar infarcts in the central midbrain and guillaume. There is no hemorrhage or other acute finding. Interpreted and Authenticated by: Rashi Ruffin 06/12/19
[2019-06-12] MEDS ORDERED: HYDROmorphone 2 MG/ML VIAL IV ONE (19:35)
--- NOTE | 2019-06-12 19:48 | Emergency Department Note ---
ED Note Addendum Note Addendum: I examined this patient and discussed the case with the mid-level provider and agree with the assessment and plan for admission.
[2019-06-12] MEDS ORDERED: PNEUMOCOCCAL 23-VAL P-SAC VAC 0.5 ML SYRINGE IM ONE (20:16)
[2019-06-12] MEDS ORDERED: ONDANSETRON 4 MG ODT TABLET SL PRN (20:16)
[2019-06-12] MEDS ORDERED: BISACODYL 5 MG TABLET PO PRN (20:16)
[2019-06-12] MEDS ORDERED: MELATONIN 3 MG TABLET PO ONE (20:57)
[2019-06-12] MEDS ORDERED: HEPARIN 5,000 UNIT/ML VIAL SQ SCH (21:00)
--- NOTE | 2019-06-12 21:12 | Nephrology History & Physical ---
History of Present Illness Patient information: Note initiated : 06/12/19 at 9:09 pm Service Date, if different from initiated Date: [] Patient: Margarita Tovar a 69 y/o F admitted on for HTN and headache. Chief Complaint: [] Chief complaint: Accelerated HTN and headache HPI: Ms. Tovar is a 69 year old F well known to me from prior admission and clinic visit(s). She has a history of Lupus without renal disease most recently on MTX and burst prednisone when she was admitted with possible sepsis with ARF, Hyperkalemia and low BP. She responded to IV bicarb, glucose and ABx. Due to t he constellation of hypotension, hyperkalemia and low glucose having been on steroids in the past the dx of adrenal insufficiency was made on clinical grounds and the fact that her BP responded in 2-3 hours to the 1st dose of hydrocortisone. Sadly, the cortrosyn stim test was done incorrectly and the two cortisol levels drawn the night of admission were post cortrosyn 250 ug so of now use. Her cultures were negative and she was discharged in 3-4 days on po hydrocortisone. Her discharge dx was as follows: Discharge diagnosis * Acute renal failure -creatinine normalized. Managed by nephrology * Hyperkalemia: 2/2 above and underlying adrenal insufficiency, clinically resolved now down from 7.94.9 * Hyponatremia: Clinically improved. Secondary to adrenal insufficiency * Adrenal insufficiency. Patient started on hydrocortisone per nephrology recommendations. * RUQ Abd pain. Clinically resolved. Imaging negative. * H/o pancytopenia: Has followed with Dr. Estevez. Continue outpatient follow-up as scheduled * Intermittent bradycardia-Coreg dose lowered to 3.125 . Recommend following up with cardiology Dr. Navas in 5 to 7 days * History of carotid artery stenosis-patient scheduled for vascular intervention at [facility]. * AFib: Continue BB/Eliquis * CAD's w/stent-continue aspirin/Eliquis/statin * COPD (no home oxygen) * Hypothyroidism continue thyroxine * SLE: On hydroxychloroquine and methotrexate. * GERD * Chronic low back pain: Stable When seen in the clinic on May 14, she was hypertensive but was on 4 x the intended dose of Hydrocortisone (80/40 qAM/QPM) so I reduced her dose to stress dosing as her clinic BP was 180/80. 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 This was done but she can to ED 1 day MACHINE BILLER with headache and HTN wich responded partially to amlodipine po and IV labatolol, Today she was back with headache and HTN, No nausea and was eating and ambulating at home per family who accompanied her in ED. A head CT is negative per verbal report seen in ED nursing note. Nothing acute on labs and I agreed to come to ED to see patient. At that time she had received IV dilaudid for her headache and was lethargic but arousable. Nonfocal neurologically and after 0.2 mg po clonidine and the dilaudid the patients BP was 140/70 when I saw her and 100/67 later. I've leveled the patient for observation status with telemetry. I anticipate less than 24 hour stay so straighten out her Rx She seems to have her headache as the cause of her accelerated HTN, not vice yuan sa. Will check SLE serologies, Urine for protein and RBCs, inflammatory serologies etc. Check AM cortisol as well as her last dose was A WHILE AGO. Review of Systems Constitutional: fatigue, headache(s) Nose, mouth and throat: headache(s) Breasts: no as per HPI, no change in shape, no mass, no pain, no nipple discharge, no skin changes, no swelling, no other Cardiovascular: as per HPI, no chest pain, no leg edema, no palpatations, no pedal edema Respiratory: as per HPI, cough Gastrointestinal: as per HPI Genitourinary: as per HPI Menstruation: no as per HPI, no menses variable, no more than 4 weeks between periods, no no periods for 6 months, no period heavy, no period light, no period normal, no period spotting, no post hysterectomy, no post menopausal, no premenarcheal, no amenorrhea, no other, no amenorrhea on BC, no currently menstrual, no cycle < 21 days, no cycle > 35 days, no cycle variable, no menses 1-7 days, no menses 8 or > days Musculoskeletal: arthralgias Integumentary: as per HPI, dry skin, no rash Neurological: as per HPI, behavioral changes (post narcotic) Psychiatric: as per HPI Hematologic/Lymphatic: as per HPI Allergic/Immunologic: as per HPI Past History Past medical history: Past medical history: Gall stones (Acute) Kidney stones (Acute) History of mammogram (Acute) History of bone density study (Acute) Compression fracture (Acute) Herpes zoster (Acute) Vitamin B12 deficiency (Acute) Anemia (Acute) Gastritis (Acute) H/O: hysterectomy (Acute) Hyperlipemia (Acute) Heart attack (Acute) CAD (coronary artery disease) (Acute) Lupus (Acute) Hypertension (Acute) Past Surgical History History of colonoscopy (Acute) Stented coronary artery (Acute) History of tonsillectomy and adenoidectomy (Acute) History of breast biopsy (Acute) Family History Mother Hypertension Father Hypertension Social History Quit smoking 10 years ago denies alcohol use ablates with a cane lives with brother Medications and Allergies Home Medications Medication Instructions Recorded Confirmed Type atorvastatin 40 mg tablet 40 mg PO QHS 10/16/15 06/12/19 History budesonide-formoterol HFA 160 1 inh INHALATION BID g 10/16/15 05/20/19 History mcg-4.5 mcg/actuation aerosol inhaler cholecalciferol (vitamin D3) 50,000 unit PO DAILY 10/16/15 05/20/19 History 50,000 unit tablet cyanocobalamin (vit B-12) 1,000 See Dose Instructions IM QMONTH 10/16/15 History mcg/mL injection solution ferrous sulfate 325 mg (65 mg 325 mg PO QNOON 10/16/15 05/20/19 History iron) tablet folic acid 1 mg tablet 1 mg PO QDAY 10/16/15 06/12/19 History hydrocodone 10 mg-acetaminophen 1 tab PO Q4H PRN 10/16/15 06/12/19 History 325 mg tablet methotrexate sodium 2.5 mg tablet See Dose Instructions PO VAZQUEZ tab 10/16/15 05/20/19 History nitroglycerin 0.4 mg sublingual 0.4 mg SUBLINGUAL Q5MIN PRN 10/16/15 05/20/19 History tablet polyethylene glycol 3350 17 gm PO DAILY PRN 10/16/15 05/20/19 History prochlorperazine maleate 10 mg 10 mg PO Q6H PRN 10/16/15 05/03/19 History tablet tiotropium bromide 18 mcg capsule 18 mcg INHALATION Q48 10/16/15 05/20/19 History with inhalation device Apixaban [Eliquis] 1 tab PO BID 05/03/19 06/12/19 History Aspirin [Sabine Chewable Aspirin] 81 mg PO DAILY 05/03/19 06/12/19 History Multivit-Min/Iron/Folic/Lutein 1 each PO DAILY 05/03/19 05/20/19 History [Multivitamin Women 50 Plus Tab] clopidogrel 75 mg tablet 75 mg PO QDAY 05/20/19 06/12/19 History hydrocortisone 10 mg tablet 10 mg PO .COMPLEX #90 tab 05/20/19 06/12/19 Rx levothyroxine 88 mcg tablet 75 mcg PO QDAY tab 05/20/19 05/20/19 History lisinopril 40 mg tablet 40 mg PO QDAY 05/20/19 06/12/19 History methocarbamol 500 mg tablet 500 mg PO QID 05/20/19 05/20/19 History pantoprazole 40 mg tablet,delayed 40 mg PO QDAY 05/20/19 06/12/19 History release Carvedilol [Coreg] 6.25 mg PO BID #60 tab 06/11/19 Rx Potassium Chloride 10 meq PO DAILY 06/12/19 06/12/19 History Tessalon Perle 100 mg PO TID 06/12/19 06/12/19 History amLODIPine 5 mg PO HS 06/12/19 06/12/19 History Allergies Allergy/AdvReac Type Severity Reaction Status Date / Time tetracycline Allergy Mild Hives Verified 06/12/19 16:09 baclofen AdvReac Mild Dizziness Verified 06/12/19 16:09 Exam - Vital Signs Vital signs: Temp Pulse Resp BP Pulse Ox 97.9 F 70 15 102/63 100 06/12/19 16:02 06/12/19 20:30 06/12/19 20:30 06/12/19 20:30 06/12/19 20:30 - General Appearance General appearance: chronically ill, fatigue, frail EENT: ATNC, PERRL, mucous membranes dry Neck: no thyromegaly, bruit Respiratory: no kyphosis, clear Cardiology: no murmurs, no rub, no edema, regular rate, normal S1, normal S2 Gastrointestinal: normoactive bowel sounds, no tenderness, no guarding Integumentary: no rash, warm and dry Neurologic: no focal deficit, no asterixis Musculoskeletal: no deformities, no erythema, no cyanosis, no clubbing Psychiatric: mood/affect appropriate Results - Lab Results 06/12/19 16:45 06/12/19 16:45 Most recent lab results Calcium 9.8 mg/dl (8.6-10.4) 06/12/19 16:45 - Image Kidney/bladder ultrasound: other Assessment and Plan (1) Hypertension, uncontrolled Initially believed to be due to too much hydrocortisone replacement No improvement with stopping HC on thursday Repeated trips to ed past 48 hrs Kelechi neg Gerlach U/A Nonfocal neuro exam In the D/Dx is lupus related HTN / cerebritis, PRESS syndrome, and HTN due to pain Will check cortisol levels to make sure she is not taking them PPt drop in BP with clonidine and dilaudid makes me wonder if HTN is due to pa in/headache, nnot the other way around MRI Lupus serologies Low dose carvedilol 3.125 BID Amlodipine 5 mg po qAM Switch lisinopril 40 mg/day to losartan 100 mg qHS AM cortisol level TSH Status: Acute Priority: High (2) Hypothyroidism, acquired Continue T4 at 88 ug/day TSH level Status: Chronic Priority: Medium (3) USP (current) use of anticoagulants On low dose apixaban, plus ASA and Plavic. Need to figure out when her stent was put in, if > 1yr, can stop ASA to reduce bleeding risk Status: Chronic Priority: Medium Comment: He is on Plavix and Eliquis and 81 aspirin (4) Lupus Nothing to suggest high activity Check to see if she was on MTX or plaquanil last Lupus serologies check inflammatory biomarkers Urine porotein to creatinine ratio ordered but U/A bland from ED Status: Chronic Priority: Medium Qualifiers: Systemic lupus erythematosus type: other Systemic lupus erythematosus organ involvement: other Qualified Code(s): M32.19 - Other organ or system in volvement in systemic lupus erythematosus (5) Rheumatoid arthritis Status: Chronic Qualifiers: Rheumatoid arthritis location: unspecified site Rheumatoid factor presence: unspecified presence Qualified Code(s): M06.9 - Rheumatoid arthritis, unspecified (6) Stented coronary artery Need dectails to stop ASA and lerave on Apixaban and clopidogrel only B-adelfo and RAASI STATIN Status: Chronic Priority: Medium Comment: X3, X7 RCA (7) Carotid artery disease [place] ASA/Plavix Statin BP control R/o Press due to prior post circulation lacunar infact in guillaume region Status: Acute Priority: High
[2019-06-12] MEDS ORDERED: 0.9 % SODIUM CHLORIDE 250 ML IV PRN (21:44)
[2019-06-12] MEDS ORDERED: cloNIDine HCL 0.1 MG TABLET PO PRN (21:54)
[2019-06-12] MEDS ORDERED: POLYETHYLENE GLYCOL 3350 17 GM PACKET PO PRN (21:56)
[2019-06-12] MEDS: 0.9 % SODIUM CHLORIDE 10 ML SYRINGE IV SCH (22:54)
[2019-06-12] MEDS: FAMOTIDINE 20 MG TABLET PO SCH (22:54)
[2019-06-13 00:35] LABS: Appearance,Urine HAZY; Bacteria,Urine FEW /hpf (0); Bilirubin,Urine NEG (NEG); Color,Urine YELLOW; Culture Indicated,Urine YES; Glucose,Urine (UA) NEGATIVE (NEG); Ketones,Urine NEG (NEG); Leukocyte Esterase,Urine 75 /uL (NEG); Mucus,Urine FEW /hpf (0); Nitrate,Urine NEG (NEG); Protein,Urine 30 mg/dL (NEG); Specific Gravity,Urine 1.011 (1.000-1.035); Urine Blood 0.03 mg/dL (<0.03); Urine Hyaline Cast 1 /lpf (0-2); Urine RBC 2 /hpf (0-1); Urine Squamous Epithelial Cell < 1 /hpf (0-4); Urine WBC 34 /hpf (0-4); Urobilinogen,Urine NEG (NEG)
[2019-06-13 05:01] LABS: Basophils # (Auto) 0 K/mcL (0.0-0.3); Basophils % (Auto) 0.1 % (0.0-2.0); Eosinophils # (Auto) 0 K/mcL (0.0-0.7); Eosinophils % (Auto) 0.4 % (0.0-7.0); Granulocytes % (Auto) 72.1 % (38.0-78.0); Hematocrit 31.3 % (36.0-48.0); Hemoglobin 10.3 g/dL (12.0-15.0); Lymphocytes # (Auto) 0.7 K/mcL (1.5-4.8); Lymphocytes % (Auto) 16.7 % (15.5-49.0); Mean Cell Volume 97.3 fL (80.0-100.0); Mean Corpuscular HGB Conc 32.9 g/dL (31.0-36.0); Monocytes # (Auto) 0.5 K/mcL (0.1-0.9); Monocytes % (Auto) 10.7 % (1.0-12.0); Platelet Count 148 K/mcL (140-440); RBC 3.22 M/mcL (4.00-5.20); Red Cell Distribution Width 17.5 % (11.5-14.5); WBC 4.4 K/mcL (4.5-11.0)
[2019-06-13 05:34] LABS: Thyroid Stimulating Hormone 16.08 uIU/ml (0.27-5.01)
[2019-06-13] MEDS: 0.9 % SODIUM CHLORIDE 250 ML IV SCH (05:39)
[2019-06-13] MEDS: 0.9 % SODIUM CHLORIDE 10 ML SYRINGE IV SCH (05:41)
[2019-06-13 05:48] LABS: ALT/SGPT 11 U/l (0-40); AST/SGOT 16 U/l (0-37); Albumin 3.7 gm/dL (3.2-5.2); Albumin/Globulin Ratio 1.8 (1.0-2.3); Alkaline Phosphatase 62 U/L (39-117); Bilirubin,Total 0.5 mg/dL (0.0-1.0); Blood Urea Nitrogen 12 mg/dl (8-23); C-Reactive Protein 0.4 mg/dl (0.0-0.8); Calcium 9.1 mg/dl (8.6-10.4); Carbon Dioxide 29 mmol/L (22-30); Chloride 99 mmol/L (96-108); Globulin 2.1 gm/dL (2.2-3.7); Glomerular Filtration Rate 52; Glucose 100 mg/dL (70-105)
[2019-06-13 06:31] LABS: Erythrocyte Sedimentation Rate 9 mm/hr (0-20)
[2019-06-13] MEDS ORDERED: LEVOTHYROXINE 75 MCG TABLET PO SCH (07:30)
--- NOTE | 2019-06-13 07:57 | Nephrology Progress Note ---
Subjective Patient information: Note initiated : 06/13/19 at 7:53 am Service Date, if different from initiated Date: [] Patient: Margarita Tovar 69 y/o F admitted on 06/12/19 for HTN and headache. Chief Complaint: [] Principal diagnosis: Accelerated HTN Interval history: BP and Headache have returned MRI pending My belief is headache leading to HTN Not clear on etiology on HD but in cludes withdrawal from analgesics and narcotics No nausea or vomiting Answers appropriatly GFR decline as BP too low last pm after dilaudid. Pertinent ROS: Allergies reviewed and confirmed Additional PMFSH (Level 3 Only): Headaches are recent in origin Objective - Vital Signs Vital signs: Vital Signs Temp Pulse Pulse Resp BP BP Pulse Ox 06/13/19 07:01 62 197/70 100 06/13/19 06:36 85 L 06/13/19 06:31 68 192/74 94 06/13/19 06:06 65 190/70 100 06/13/19 06:01 67 181/76 100 06/13/19 05:32 67 158/75 96 06/13/19 05:01 58 L 116/69 100 06/13/19 04:31 56 L 109/54 100 06/13/19 04:01 97.5 F 59 L 119/57 100 06/13/19 03:31 57 L 82/52 100 06/13/19 03:01 54 L 90/48 94 06/13/19 02:31 53 L 102/51 98 06/13/19 02:01 55 L 93/61 82 L 06/13/19 01:31 63 92/62 100 06/13/19 01:01 65 89/54 100 06/13/19 00:32 64 81/50 100 06/13/19 00:31 66 79/57 98 06/13/19 00:01 66 90/51 98 06/12/19 23:35 99.2 F H 64 16 137/71 92 06/12/19 23:31 76 137/71 98 06/12/19 23:02 64 130/62 99 06/12/19 22:17 66 156/104 100 06/12/19 22:09 71 158/77 100 06/12/19 21:55 98.6 F 70 18 158/77 100 06/12/19 21:43 97.9 F 67 10 L 96/61 100 06/12/19 21:39 67 10 L 100 06/12/19 21:31 69 13 96/61 100 06/12/19 21:00 70 10 L 100/58 100 06/12/19 20:30 70 15 102/63 100 06/12/19 20:01 71 12 143/66 100 06/12/19 19:56 70 12 100 06/12/19 19:40 73 12 96 06/12/19 19:36 78 21 179/85 98 06/12/19 19:35 10 L 193/158 06/12/19 19:34 19 184/146 06/12/19 19:33 14 178/76 06/12/19 19:32 22 180/81 06/12/19 19:31 80 20 175/85 97 06/12/19 19:30 79 15 97 06/12/19 19:12 84 15 179/92 100 06/12/19 19:02 79 21 174/95 100 06/12/19 19:01 75 21 98 06/12/19 18:52 86 18 212/85 93 06/12/19 18:47 85 20 161/88 100 06/12/19 18:42 82 9 L 194/109 98 06/12/19 18:39 81 15 205/86 100 06/12/19 18:31 96 H 27 H 213/86 77 L 06/12/19 18:22 196/101 06/12/19 18:13 17 203/90 06/12/19 18:02 22 126/107 06/12/19 18:00 29 H 195/94 06/12/19 17:59 23 H 181/109 06/12/19 17:37 18 188/95 06/12/19 17:34 182/164 06/12/19 17:32 178/94 06/12/19 17:24 24 H 06/12/19 17:22 27 H 201/79 06/12/19 17:20 25 H 209/81 06/12/19 17:17 88 22 196/140 100 06/12/19 16:59 18 06/12/19 16:50 24 H 205/86 06/12/19 16:17 20 186/86 06/12/19 16:02 97.9 F 84 16 200/92 94 Intake and Output 06/12/19 06/13/19 06/13/19 21:59 05:59 13:59 Intake Total 150 0 Output Total 300 Balance 150 -300 Intake: IV 150 Sodium Chloride 0.9% 250 ml @ 150 20 mls/hr IV .[id number] BASIL Rx#: [id number] Oral 0 Output: Void Amount 300 Other: Weight 111 lb 6 oz Intake & Output: Intake & Output 06/12/19 06/13/19 06/13/19 21:59 05:59 13:59 Intake Total 150 0 Output Total 300 Balance 150 -300 Weight 111 lb 6 oz Intake: IV 150 Sodium Chloride 0.9% 250 ml @ 150 20 mls/hr IV .[id number] BASIL Rx#: [id number] Oral 0 Output: Void Amount 300 - General Appearance General appearance: appears started age, moderate distress, frail EENT: ATNC, PERRL, mucous membranes moist, vision intact Neck: no JVD, no thyromegaly, no carotid bruit Respiratory: kyphosis Cardiology: no murmurs, no rub, no edema, normal S1, normal S2 Gastrointestinal: normoactive bowel sounds, no tenderness, no guarding, no masses Integumentary: no rash, warm and dry Neurologic: no focal deficit, no asterixis, alert and oriented x3, CN 3-12 intact Musculoskeletal: no deformities, no erythema, no cyanosis, no clubbing - Lab 06/13/19 04:00 06/13/19 04:00 Most recent lab results Calcium 9.1 mg/dl (8.6-10.4) 06/13/19 04:00 - Imaging Kidney/bladder ultrasound: other (CT with lacunar infact in guillaume, MRI ordered for PRESS) Assessment and Plan (1) Hypertension, uncontrolled Status: Acute Priority: High (2) Hypothyroidism, acquired Status: Chronic Priority: Medium (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 Status: Chronic Priority: Medium Comment: He is on Plavix and Eliquis and 81 aspirin (4) Lupus Status: Chronic Priority: Medium Qualifiers: Systemic lupus erythematosus type: other Systemic lupus erythematosus organ involvement: other Qualified Code(s): M32.19 - Other organ or system involvement in systemic lupus erythematosus (5) Rheumatoid arthritis Status: Chronic Qualifiers: Rheumatoid arthritis location: unspecified site Rheumatoid factor presence: unspecified presence Qualified Code(s): M06.9 - Rheumatoid arthritis, unspecified (6) Stented coronary artery Status: Chronic Priority: Medium Comment: X3, X7 RCA (7) Carotid artery disease Status: Acute Priority: High
[2019-06-13] MEDS ORDERED: CARVEDILOL 6.25 MG TABLET PO SCH (08:00)
[2019-06-13] MEDS ORDERED: FUROSEMIDE 20 MG TABLET PO SCH (08:00)
[2019-06-13] MEDS: FAMOTIDINE 20 MG TABLET PO SCH (08:52)
[2019-06-13] MEDS ORDERED: amLODIPine 10 MG TABLET PO SCH (09:00)
[2019-06-13] MEDS ORDERED: FOLIC ACID 1 MG TABLET PO SCH (09:00)
[2019-06-13] MEDS ORDERED: CLOPIDOGREL 75 MG TABLET PO SCH (09:00)
[2019-06-13] MEDS ORDERED: LISINOPRIL 40 MG PO SCH (09:00)
[2019-06-13] MEDS ORDERED: hydrALAZINE 10 MG TABLET PO SCH (09:00)
[2019-06-13] MEDS ORDERED: APIXABAN 2.5 MG TABLET PO SCH (09:00)
[2019-06-13] MEDS ORDERED: TIOTROPIUM BROMIDE 18 MCG INHALANT INH SCH (09:00)
--- NOTE | 2019-06-13 11:54 | Magnetic Resonance Report ---
CLINICAL INFORMATION: Headache COMPARISON: Head CT 06/12/2019 TECHNIQUE:Sagittal T1 FLAIR, axial T1 FLAIR, T2 FLAIR propeller, T2 propeller, gradient, diffusion, ADC and coronal T2 weighted images were acquired. FINDINGS: The ventricles, sulci, fissures and cisterns are symmetrically enlarged patible with mild age-related atrophy - no subdural hemorrhage or extra-axial fluid collection or mass appreciated. Scattered chronic ischemic foci are seen throughout the deep cerebral white matter - most prominent in the paraventricular regions. There is a 2 mm chronic ischemic foci focus in the right corpus callosum genu and a 6 mm chronic ischemic focus in the right guillaume. There are 3-4 remote lacunar infarcts inferior right cerebellar hemisphere. There is no intracerebral hemorrhage, mass effect, edema or restricted effusion or other acute finding. Signal void in the intracerebral arteries, extra-axial cranial nerves, pituitary and orbits are normal. A 12 mm polyp is seen in the anterior left maxillary sinus with a 5 mm polyp in the posterior right maxillary sinus. Other paranasal sinuses are clear IMPRESSION: Mild atrophy and scattered chronic ischemic foci in the deep cerebral white matter and central guillaume typical for age. Remote lacunar infarcts in the inferior right cerebellum. No hemorrhage or other acute intracerebral abnormality Interpreted and Authenticated by: Rashi Ruffin 06/13/19
[2019-06-13] MEDS ORDERED: FERROUS SULFATE 325 MG TABLET PO SCH (12:00)
--- NOTE | 2019-06-13 12:39 | Discharge Summary ---
Providers - Providers Patient information: Note initiated : 06/13/19 at 12:36 pm Service Date, if different from initiated Date: [] Patient: Margarita Tovar 69 y/o F admitted on 06/12/19 for HTN and headache. Chief Complaint: [] Date of admission: 06/12/19 Discharge date: 06/13/19 Attending physician: Travis Stephenson Hospitalization Hospital Course: Patient BP controlled with the following: Coreg 6.25 mg BID Amlodipine 10 mg po qAM Hydralazine 10 mg po TID Lasix 20 mg po BID Lisinopril [address] and MRI show small vessel disease and old pontine lacunar infart BP 130/70 and pulse 60's at discharge Headache has abated Recommend to stop narcotics and use Acetaminopnen 1000 mg po TID prn pains STOP hydrocortisone as you already have done FU with PCP and nephrology within 1 week Follow up with Web Content Coordinator to follow MTX therapy Update with daughter in law and patient Patient is able to recite her meds Discharge diagnosis: Accelerated Hypertension and Headache Secondary discharge diagnosis: SLE/RA Reason for admission: BP control in monitored setting Procedures: None Pertinent studies/significant findings: CT and MRI w/o bleeding or PRESS evidence. Small vessel disease with atropy and solitary pontine lacunar infarct. Complications: none Exam - Vital Signs Vital signs: Temp Pulse Resp BP Pulse Ox 98.7 F 62 18 120/58 94 06/13/19 12:09 06/13/19 07:01 06/13/19 12:09 06/13/19 12:09 06/13/19 12:09 - General Appearance General appearance: well-developed, well-nourished, appears started age, frail EENT: ATNC, PERRL, mucous membranes moist Neck: no JVD, no thyromegaly, no carotid bruit Respiratory: kyphosis Cardiology: no murmurs, no rub, no gallops, no edema, regular rate, regular rhythm Gastrointestinal: normoactive bowel sounds, no tenderness, no guarding, no organomegaly Integumentary: no rash, warm and dry Neurologic: no focal deficit, no asterixis, alert and oriented x3, CN 3-12 intact Musculoskeletal: no deformities, no erythema, no cyanosis Psychiatric: mood/affect appropriate Discharge Plan - Patient/Caregiver Discharge Instructions Activity: resume usual activities as tolerated Diet: Low Sodium (2gm) Prescriptions: amLODIPine [Norvasc] 10 mg PO DAILY 30 Days tablet Furosemide [Lasix] 20 mg PO BIDD #60 tab hydrALAZINE [Apresoline] 10 mg PO TID 30 Days #90 tab Levothyroxine [Synthroid] 100 mcg PO ACB #30 tab - Follow up Plan Follow up with: Travis Stephenson MD [Physician] - 06/20/19 1:30 pm (Please check in at 1:15pm) Denise Cid ARNP [Primary Care Provider] - 06/15/19 3:00 pm (Check in at 2:45pm) Disposition: Home, Self-Care Care Plan Goals: This discharge packet is provided to you to help keep you informed about your care. We want to ensure you get everything you need when you go home. You will also be receiving a call from us in a few days to follow up with you and see how you are doing since your discharge. This gives us a chance to listen to any concerns you maybe experiencing since you were discharged or any additional needs you may have, as well as providing us feedback on your care experience. We strive to always provide excellent care and thank you for your feedback and for choosing [facility]. Plan of Treatment: BP meds adjusted Use extra strength tylenol in place of hydrocodone for pain as dirrected on the bottle Prognosis: Fair Rehab Potential: Good I certify that the patient requires SNF services.: No Overall status at discharge: patient is back to baseline Pending Studies Resuscitation Status Full Code Diet Low Sodium Diet (2gm) Start ThuJun 13 1049 Amlodipine Besylate (Norvasc) 10 mg PO DAILY [facility] Last Admin: 06/13/19 08:52 Dose: 10 mg Documented by: [email or web address] Apixaban (Eliquis) 2.5 mg PO BID [facility] Last Admin: 06/13/19 08:52 Dose: 2.5 mg Documented by: [email or web address] [facility]) [facility] Last Admin: 06/13/19 08:47 Dose: 6.25 mg Documented by: [email or web address] Clonidine HCl (Catapres) 0.1 mg PO Q2HP PRN PRN Reason: Hypertension Last Admin: 06/13/19 06:02 Dose: 0.1 mg Documented by: DALIA Clopidogrel Bisulfate (Plavix) 75 mg PO QDAY [facility] Last Admin: 06/13/19 08:52 Dose: 75 mg Documented by: MICHAELA Famotidine (Pepcid) 20 mg PO BID [facility] Last Admin: 06/13/19 08:52 Dose: 20 mg Documented by: Admin: 06/12/19 22:54 Dose: 20 mg Documented by: DALIA Ferrous Sulfate (Ferrous Sulfate) 325 mg PO QNOON [facility] Last Admin: 06/13/19 12:07 Dose: 325 mg Documented by: MICHAELA Folic Acid (Folic Acid) 1 mg PO QDAY [facility] Last Admin: 06/13/19 08:52 Dose: 1 mg Documented by: MICHAELA Furosemide (Lasix) 20 mg PO BIDD [facility] Last Admin: 06/13/19 08:47 Dose: 20 mg Documented by: MICHAELA Hydralazine HCl (Apresoline) 10 mg PO TID [facility] Last Admin: 06/13/19 08:52 Dose: 10 mg Documented by: MICHAELA Sodium Chloride (Sodium Chloride 0.9%) 250 mls @ 20 mls/hr IV .[id number] [facility] Last Admin: 06/13/19 05:39 Dose: Not Given Documented by: Infusion: 06/12/19 21:42 Dose: 0 mls/hr Documented by: Infusion: 06/12/19 21:40 Dose: 20 mls/hr Documented by: Admin: 06/12/19 18:48 Dose: 20 mls/hr Documented by: RAYA Sodium Chloride (Saline Flush) 10 ml IV Q8 [facility] Last Admin: 06/13/19 05:41 Dose: 10 ml Documented by: Admin: 06/12/19 22:54 Dose: 10 ml Documented by: DALIA Tiotropium [place] (Spiriva) 18 mcg INH DAILY [facility] Last Admin: 06/13/19 08:53 Dose: Not Given Documented by: [email or web address] Shift Summary 06/13/19 03:42 Shift Summary by Arcadio [place] admitted for Accelerated HTN TELE OBS, A&OX4, SR, HR 50-60's, LOW BP tonight MAPS mid 60's, received dilaudid and clonidine in ED and pt became hypotensive and drowsy, 2L oxymask after meds given in ED, 20G RFA SL, MRI BRAIN this AM, repeat EKG this AM, up w/1A to BSC, Urine culture pending, per report possible D/C home today, pt lives with her brother Initialized on 06/13/19 03:42 - END OF NOTE
[2019-06-13 13:16] LABS: Anti-Nuclear Antibody Pattern HOMOGENEOUS
[2019-06-13] MEDS ORDERED: ATORVASTATIN 20 MG TABLET PO SCH (21:00)
[2019-06-13] MEDS ORDERED: LISINOPRIL 20 MG TABLET PO SCH (21:00)
[2019-06-13] MEDS ORDERED: amLODIPine 5 MG TABLET PO SCH (21:00)
[2019-06-13] MEDS ORDERED: LOSARTAN 50 MG TABLET PO SCH (21:00)
[2019-06-14] MEDS ORDERED: LEVOTHYROXINE 100 MCG TABLET PO SCH (07:30)
[2019-06-16 08:12] LABS: C3, Serum 90 mg/dL (83-193); C4, Serum 14 mg/dL (15-57)
== END 2019-06-13 13:55 | disposition home or self-care (01) ==
LOC: ICU 16:01 → ED 16:01 → ICU 19:58
PROVIDERS: ADMIT Internal Medicine Nephrology; ATTEND Internal Medicine Nephrology